=== PATIENT | female | born 1945 | race Caucasian/White ===

== ENCOUNTER 2017-08-23 09:08 | Inpatient (IN) | payer OTHER, MEDICAID ==
[2017-08-23 09:43] LABS: BASOPHILS # (AUTO) 0.2 X10^3/uL (0.0-0.1); BASOPHILS % (AUTO) 1.2 % (0.2-1.0); EOSINOPHILS % (AUTO) 0.2 % (0.9-2.9); HEMATOCRIT 39.9 % (36.0-47.0); HEMOGLOBIN 13.5 g/dL (12.0-16.0); LYMPHOCYTES % (AUTO) 6.5 % (21.0-51.0); MEAN CORPUSCULAR HEMOGLOBIN 31.7 pg (27.0-34.0); MEAN CORPUSCULAR HGB CONC 33.9 g/dL (33.0-35.0); MEAN CORPUSCULAR VOLUME 93.4 fL (80.0-100.0); MEAN PLATELET VOLUME 8.7 fL (7.4-11.0); MONOCYTES # (AUTO) 0.7 x10^3/uL (0.3-0.8); MONOCYTES % (AUTO) 4.9 % (0.0-13.0); NEUTROPHILS # (AUTO) 12.9 x10^3/uL (2.2-4.8); NEUTROPHILS % (AUTO) 87.2 % (42.0-75.0); PLATELET COUNT 387 X10^3/uL (150.0-450.0); RED BLOOD COUNT 4.27 X10^6/uL (3.5-5.4); RED CELL DISTRIBUTION WIDTH 14.7 % (11.6-16.5); WHITE BLOOD COUNT 14.8 X10^3/uL (3.6-10.0)
--- NOTE | 2017-08-23 09:54 | DR.GENAD ---
HPI - PCP Primary Care Physician: KIM - HPI Comment HPI Comment: Generalised weakness. Seen at the E.D in [facility] last night for same. She was noted with electrolyte abnormalities. She was d/c back to the [facility] after infusion of fluids. [facility] staff called here this morning and requested she be seen here - Complaint/Symptoms Chief Complaint:: GIOVANNI DRAKE RN, FROM [facility] CALLS AND STATES PT. WAS SENT TO [facility] LAST NIGHT WITH A POTASSIUM OF 6.0. PT. WAS GIVEN IVF'S AND SENT BACK TO LONG TERM WITH ORDERS TO ADMINISTER KAEXYLATE. NURSE STATES PT. HAS JERKING SENSTATIONS TO HER EXTREMITIES, GENERALIZED WEAKNESS, AMS , A-FIB WITH A RATE BETWEEN 85-120 BPM, HYPOXIA & SHALLOW RESPIRATIONS. O2 WAS 62% ON ROOM AIR. UPON ARRIVAL TO ER, PT. IS LETHARGIC AND C/O LOWER BACK PAIN. - Nurses notes reviewed Nurses Notes Review: Yes - Source History Provided: EMS, Jail - Mode of Arrival Mode of Arrival: EMS - Timing Onset of Chief Complaint: 08/22/17 - Modifying Factors Worsens:: nothing Improves:: nothing PMH - PMH Past Medical History: Yes Past Medical History: Anxiety, COPD, Coronary Artery Disease, Depression, Diabetes, GERD, Hypertension, [place] Past Medical History Comment: ANOREXIA Past Surgical History: Yes Surgical History: Bowel Resection, CABG/Valve Surgery Past Surgical History Comment: Colostomy - Family History History of Family Medical Conditions: Yes Family Medical History: Diabetes Mellitus, Cancer, Coronary Artery Disease - Social History Does patient currently use any type of tobacco product: No Have you used tobacco products in the last 12 months: No Type of Tobacco Use: None Does any household member use tobacco: No Alcohol Use: None Do you use any recreational Drugs:: No Lives Where: Jail - infectious screening In the last 2 months have you had wt loss of >10#?: NO Have you had fever, night sweats or hemotysis?: No Have you traveled outside the country in the last 6 months?: No Isolation: Standard ROS - Review of Systems Constitutional: Weakness Eyes: No Symptoms Reported ENTM: No Symptoms Reported Respiratoy: No Symptoms Reported Cardiovascular: No Symptoms Reported Gastrointestinal/Abdominal: No Symptoms Reported Genitourinary: No Symptoms Reported Neurological: No Symptoms Reported Musculoskeletal: No Symptoms Reported Integumentary: No Symptoms Reported Hematologic/Lymphatic: No Symptoms Reported Endocrine: No Symptoms Reported Psychiatric: No Symptoms Reported All Other Systems: Reviewed and Negative PE - Vital Signs Vitals: Temperature 98.7 F Pulse Rate [Apical] 84 Pulse Rate 86 Respiratory Rate 13 Blood Pressure [Right Arm] 137/51 Blood Pressure [Left Arm] 114/57 Blood Pressure 118/57 O2 Sat by Pulse Oximetry 100 - General Limitations: No Limitations General Appearance: Alert, Lethargic, Cachectic - Head Head Exam: Normal Inspection - Eyes Eye exam: Normal Appearance, PERRL, EOMI - ENT ENT Exam: Normal Exam, Mucous Membranes Dry External Ear Exam: Normal External Inspection TM/Canal Exam: Bilateral Normal Nose Exam: Normal Nose Exam Mouth Exam: Other (Dry tongue and lips) - Neck Neck Exam: Normal Inspection - Chest Chest Inspection: Normal Inspection - Respiratory Respiratory Exam: Normal Lung Sounds Bilat Respiratory Exam: Bilateral Clear to Auscultation - Cardiovascular Cardiovascular Exam: Regular Rate, Normal Rhythm - Abdominal Exam Abdominal Exam: Normal Inspection, Normal Bowel Sounds, Soft, Other (Right sided colostomy bag) - Extremities Extremities Exam: Normal Inspection - Back Back Exam: Normal Inspection - Neurologic Neurological Exam: Other (oriented to self) - Psychiatric Psychiatric Exam: Normal Affect, Normal Mood - Skin Skin Exam: Warm, Dry, Intact, Normal Color MDM - Additional Information Additional Information Obtained From: Old Records (from [facility] relating to last night's E.D. visit.) Course - Education/Counseling Education/Counseling: Patient, Family Educated On: Treatment, Diagnosis ROR - Labs Reviewed Result Diagrams: 08/23/17 09:25 08/23/17 10:43 - XRAY XRAY Interpreted by: Self (hyperinflated lung hargrove. no gross infiltrates. no pneumothorax. no cardiomegaly. ) - Diagnosis Discharge Problem: Weakness generalized, UTI (urinary tract infection) with pyuria, Hyperkalemia, Hyponatremia, Dehydration, Leukocytosis - Discharge Plan Disposition: ADMITTED INPATIENT Condition: Stable - Follow ups/Referrals - Instructions
[2017-08-23 10:09] LABS: ALANINE AMINOTRANSFERASE 26 Units/L (12-78); ALBUMIN 3.4 g/dL (3.4-5.0); ALKALINE PHOSPHATASE 133 Units/L (46-116); ASPARTATE AMINO TRANSFERASE 32 Units/L (15-37); BLOOD UREA NITROGEN 58 mg/dL (7-18); CHLORIDE 103 mmol/L (98-107); CREATININE 3.23 mg/dL (0.55-1.02); TOTAL PROTEIN 8.3 g/dL (6.4-8.2); eGFR BLACK RACES 18 (>60); eGFR NON BLACK RACES 15 (>60)
[2017-08-23 10:22] LABS: SODIUM 124 mmol/L (136-145)
[2017-08-23 10:57] LABS: BLOOD UREA NITROGEN 56 mg/dL (7-18); CALCIUM 10.1 mg/dL (8.5-10.1); CARBON DIOXIDE 15.6 mmol/L (21-32); CHLORIDE 102 mmol/L (98-107); CREATININE 3.33 mg/dL (0.55-1.02); eGFR BLACK RACES 18 (>60); eGFR NON BLACK RACES 15 (>60)
[2017-08-23 11:04] LABS: SODIUM 123 mmol/L (136-145)
[2017-08-23] MEDS ORDERED: KAYEXALATE PO ONE (11:31)
[2017-08-23] MEDS ORDERED: SODIUM BICARBONATE 8.4% INJ ADULT IVP ONE (11:33)
[2017-08-23 11:41] LABS: BILIRUBIN,URINE NEGATIVE (NEGATIVE); BLOOD/HEMOGLOBIN,URINE 2+ (NEGATIVE); GLUCOSE, URINE 1+ (NEGATIVE); KETONES,URINE NEGATIVE (NEGATIVE); LEUKOCYTE ESTERASE ,URINE 3+ (NEGATIVE); NITRITES,URINE NEGATIVE (NEGATIVE); PROTEIN,URINE 2+ (NEGATIVE); UROBILINOGEN,URINE NORMAL (NORMAL)
[2017-08-23] MEDS ORDERED: D50W ABBOJECT SYR IV ONE (11:41)
[2017-08-23 11:42] LABS: APPEARANCE,URINE CLOUDY (CLEAR); COLOR,URINE YELLOW (YELLOW)
[2017-08-23] MEDS ORDERED: SODIUM BICARBONATE 8.4% INJ ADULT ONE (11:44)
[2017-08-23] MEDS ORDERED: HumuLIN R ONE (11:53)
[2017-08-23 11:54] LABS: AMORPHOUS SEDIMENT,UR 1+ /HPF (NEGATIVE); BACTERIA,URINE 3+ /HPF (NEGATIVE); SQUAMOUS EPITHELIAL CELL,UR RARE /HPF (NEGATIVE)
[2017-08-23 11:55] LABS: YEAST,URINE MANY /HPF (NEGATIVE)
[2017-08-23] MEDS ORDERED: CALCIUM CHLORIDE INJ IV ONE (12:00)
[2017-08-23] MEDS ORDERED: HumuLIN R IV ONE (12:00)
[2017-08-23] MEDS ORDERED: NS 1000 ML 1,000 ML ONE (12:00)
[2017-08-23] MEDS ORDERED: D50W ABBOJECT SYR ONE (12:12)
--- NOTE | 2017-08-23 12:25 | RAD ---
HISTORY: 72-year-old male with altered mental status and low oxygen saturation Study: Frontal view of the chest. Comparison: Chest radiograph 05/29/2016 Findings: Surgical devices are stable. The trachea is midline. The cardiac silhouette is stably enlarged with low lung volumes and trace bi lateral effusions with chronic prominence of the interstitium.. The lungs are clear without focal co nsolidation, effusion or pneumothorax. Soft tissues are unremarkable. Osseous structures are unremar kable. IMPRESSION: 1. Cardiomegaly with trace bilateral effusions and prominent interstitium consistent with COPD. Reported By:
[2017-08-23] MEDS ORDERED: LEVAQUIN PREMIX IV 250 MG 250 MG/50 ML BAG IV SCH (13:00)
[2017-08-23] MEDS: NS 1000 ML 1,000 ML IV SCH ×3 (14:50→23:49)
[2017-08-23 16:21] VITALS: BMI 13.2
[2017-08-23] MEDS ORDERED: ULTRAM PO PRN (17:13)
[2017-08-23] MEDS ORDERED: HumuLIN R SC PRN (17:13)
[2017-08-23] MEDS ORDERED: XOPENEX 1.25 MG/3 ML NEBULE NEB SCH (17:15)
[2017-08-23] MEDS ORDERED: PULMICORT NEB TX 0.5 MG NEB SCH (17:15)
[2017-08-23] MEDS ORDERED: ROCEPHIN VIAL 1 GM 1 GM in NS 50 ML IV + SPIKE MINIBAG* 50 ML IV SCH (17:30)
[2017-08-23] MEDS ORDERED: XOPENEX 1.25 MG/3 ML NEBULE NEB ONE (17:33)
[2017-08-23] MEDS ORDERED: ROCEPHIN VIAL 1 GM ONE (17:58)
[2017-08-23] MEDS ORDERED: NS 50 ML IV 50 ML IV ONE (17:59)
[2017-08-23] MEDS: KAYEXALATE PO SCH ×2 (18:06→23:49)
[2017-08-23] MEDS: TOBRAMYCIN SULFATE IV SCH (18:30)
[2017-08-23] MEDS: NS IV SCH (18:30)
[2017-08-23] MEDS: XOPENEX 1.25 MG/3 ML NEBULE NEB SCH (20:18)
[2017-08-23] MEDS: PULMICORT NEB TX 0.5 MG NEB SCH (20:18)
[2017-08-23] MEDS: HumuLIN R SC PRN (21:05)
[2017-08-24] MEDS: TOBRAMYCIN SULFATE IV SCH ×4 (00:30→23:42)
[2017-08-24] MEDS: NS IV SCH ×4 (00:30→23:42)
[2017-08-24] MEDS: TYLENOL #3 TAB (W/CODEINE) PO PRN ×2 (04:43→12:17)
[2017-08-24] MEDS: KAYEXALATE PO SCH ×2 (05:06→12:05)
[2017-08-24] MEDS: NS 1000 ML 1,000 ML IV SCH ×2 (05:07→22:55)
[2017-08-24 05:31] LABS: LACTIC ACID 1.9 mmol/L (0.4-2.0)
[2017-08-24 05:40] LABS: ALBUMIN 2.4 g/dL (3.4-5.0); CALCIUM 9.3 mg/dL (8.5-10.1); COR CA(FOR HYPOALB) 10.6 mg/dL (8.5-10.1); CREATININE 2.13 mg/dL (0.55-1.02)
[2017-08-24 05:47] LABS: CARBON DIOXIDE 13.4 mmol/L (21-32)
[2017-08-24 05:51] LABS: BASOPHILS # (AUTO) 0.1 X10^3/uL (0.0-0.1); BASOPHILS % (AUTO) 0.7 % (0.2-1.0); EOSINOPHILS % (AUTO) 0.4 % (0.9-2.9); HEMATOCRIT 31.7 % (36.0-47.0); HEMOGLOBIN 10.6 g/dL (12.0-16.0); LYMPHOCYTES # (AUTO) 0.7 X10^3/uL (1.3-2.9); LYMPHOCYTES % (AUTO) 8.8 % (21.0-51.0); MEAN CORPUSCULAR HEMOGLOBIN 32.4 pg (27.0-34.0); MEAN CORPUSCULAR HGB CONC 33.5 g/dL (33.0-35.0); MEAN CORPUSCULAR VOLUME 96.6 fL (80.0-100.0); MEAN PLATELET VOLUME 8.9 fL (7.4-11.0); MONOCYTES # (AUTO) 0.5 x10^3/uL (0.3-0.8); MONOCYTES % (AUTO) 6.6 % (0.0-13.0); NEUTROPHILS # (AUTO) 6.5 x10^3/uL (2.2-4.8); NEUTROPHILS % (AUTO) 83.5 % (42.0-75.0); PLATELET COUNT 266 X10^3/uL (150.0-450.0); RED BLOOD COUNT 3.28 X10^6/uL (3.5-5.4); WHITE BLOOD COUNT 7.8 X10^3/uL (3.6-10.0)
[2017-08-24] MEDS: HumuLIN R SC PRN ×4 (06:09→20:51)
[2017-08-24] MEDS: XOPENEX 1.25 MG/3 ML NEBULE NEB SCH ×5 (08:19→21:27)
[2017-08-24] MEDS: PULMICORT NEB TX 0.5 MG NEB SCH ×2 (08:19→21:27)
[2017-08-24] MEDS ORDERED: ROCEPHIN VIAL 1 GM 1 GM in NS 100 ML IV + SPIKE MINIBAG* 100 ML IV SCH (09:00)
[2017-08-24] MEDS: ROCEPHIN VIAL 1 GM 1 GM in NS 50 ML IV 50 ML IV SCH (12:20)
[2017-08-24] MEDS ORDERED: ROCEPHIN VIAL 1 GM ONE (12:23)
[2017-08-24] MEDS ORDERED: NS 50 ML IV 50 ML IV ONE (12:23)
[2017-08-24 21:41] LABS: CREATININE 1.46 mg/dL (0.55-1.02)
[2017-08-24 22:23] LABS: TOBRAMYCIN,TROUGH 2.8 ug/mL (0-2)
[2017-08-24] MEDS ORDERED: PHARMACY CONSULT - TOBRAMYCIN XX SCH (23:00)
[2017-08-25] MEDS: TYLENOL #3 TAB (W/CODEINE) PO PRN (00:35)
[2017-08-25] MEDS: HumuLIN R SC PRN ×4 (06:01→20:55)
[2017-08-25 06:19] LABS: ALBUMIN 2.5 g/dL (3.4-5.0); CALCIUM 8.8 mg/dL (8.5-10.1); CREATININE 1.27 mg/dL (0.55-1.02)
[2017-08-25] MEDS: NS 1000 ML 1,000 ML IV SCH ×3 (06:25→15:57)
[2017-08-25 06:29] LABS: BASOPHILS # (AUTO) 0.1 X10^3/uL (0.0-0.1); BASOPHILS % (AUTO) 0.9 % (0.2-1.0); EOSINOPHILS # (AUTO) 0.1 x10^3/uL (0.0-0.2); EOSINOPHILS % (AUTO) 1.8 % (0.9-2.9); HEMATOCRIT 31.9 % (36.0-47.0); HEMOGLOBIN 10.7 g/dL (12.0-16.0); LYMPHOCYTES # (AUTO) 1.1 X10^3/uL (1.3-2.9); LYMPHOCYTES % (AUTO) 16.2 % (21.0-51.0); MEAN CORPUSCULAR HEMOGLOBIN 31.8 pg (27.0-34.0); MEAN CORPUSCULAR HGB CONC 33.4 g/dL (33.0-35.0); MEAN CORPUSCULAR VOLUME 95.2 fL (80.0-100.0); MEAN PLATELET VOLUME 8.7 fL (7.4-11.0); MONOCYTES # (AUTO) 0.6 x10^3/uL (0.3-0.8); MONOCYTES % (AUTO) 8.2 % (0.0-13.0); NEUTROPHILS # (AUTO) 5.1 x10^3/uL (2.2-4.8); NEUTROPHILS % (AUTO) 72.9 % (42.0-75.0); PLATELET COUNT 259 X10^3/uL (150.0-450.0); RED BLOOD COUNT 3.35 X10^6/uL (3.5-5.4); RED CELL DISTRIBUTION WIDTH 14.8 % (11.6-16.5)
[2017-08-25 07:08] LABS: CARBON DIOXIDE 13.3 mmol/L (21-32)
[2017-08-25] MEDS: ROCEPHIN VIAL 1 GM 1 GM in NS 50 ML IV 50 ML IV SCH (08:24)
[2017-08-25] MEDS: XOPENEX 1.25 MG/3 ML NEBULE NEB SCH ×4 (08:56→20:27)
[2017-08-25] MEDS: PULMICORT NEB TX 0.5 MG NEB SCH ×2 (08:56→20:27)
[2017-08-25] MEDS ORDERED: NS IV SCH (09:00)
[2017-08-25] MEDS ORDERED: TOBRAMYCIN SULFATE IV SCH (09:00)
[2017-08-25 10:48] LABS: ABG BASE EXCESS -12.3 mmol/L (-2.0-2.0); ABG HCO3 11.9 mmol/L (22-26)
[2017-08-25 10:49] LABS: ABG ALLEN TEST POS; FRACTIONATED INSPIRED OXYGEN 21
--- NOTE | 2017-08-25 10:52 | RAD ---
HISTORY: Shortness of breath Study: Chest PA and lateral Comparison: 08/23/2017 Findings: The patient is status post median sternotomy and CABG. The heart is within normal limits in size. The troy are normal. The lungs are mildly hyperinflated but free of acute alveolar infiltrates. There patten s been interval development of a left pleural effusion since the prior examination. IMPRESSION: Interval development of a small left pleural effusion since the prior examination Hyperinflation consistent with COPD No infiltrates Reported By:
[2017-08-25] MEDS ORDERED: SODIUM BICARBONATE TAB 650MG PO ONE (16:21)
[2017-08-25] MEDS ORDERED: NS 1000 ML 1,000 ML IV SCH (17:00)
[2017-08-25] MEDS ORDERED: SODIUM BICARBONATE TAB 650MG PO SCH (17:00)
[2017-08-25] MEDS ORDERED: TYLENOL #3 TAB (W/CODEINE) PO PRN (17:32)
[2017-08-25] MEDS ORDERED: PHARMACY CONSULT - TOBRAMYCIN XX SCH (17:32)
[2017-08-25] MEDS ORDERED: ULTRAM PO PRN (17:32)
[2017-08-25] MEDS ORDERED: SNACK - Diabetic Appropriate PO SCH (20:00)
[2017-08-25] MEDS: SODIUM BICARBONATE TAB 650MG PO SCH (21:01)
[2017-08-26] MEDS: SODIUM BICARBONATE TAB 650MG PO SCH ×2 (05:44→13:30)
[2017-08-26] MEDS: HumuLIN R SC PRN ×3 (05:48→16:38)
[2017-08-26 05:54] LABS: BASOPHILS % (AUTO) 0.5 % (0.2-1.0); EOSINOPHILS # (AUTO) 0.1 x10^3/uL (0.0-0.2); EOSINOPHILS % (AUTO) 1.4 % (0.9-2.9); HEMATOCRIT 29.2 % (36.0-47.0); HEMOGLOBIN 10.2 g/dL (12.0-16.0); LYMPHOCYTES # (AUTO) 0.9 X10^3/uL (1.3-2.9); LYMPHOCYTES % (AUTO) 14.7 % (21.0-51.0); MEAN CORPUSCULAR HEMOGLOBIN 32.6 pg (27.0-34.0); MEAN CORPUSCULAR VOLUME 93.3 fL (80.0-100.0); MEAN PLATELET VOLUME 8.1 fL (7.4-11.0); MONOCYTES # (AUTO) 0.5 x10^3/uL (0.3-0.8); MONOCYTES % (AUTO) 7.8 % (0.0-13.0); NEUTROPHILS # (AUTO) 4.5 x10^3/uL (2.2-4.8); NEUTROPHILS % (AUTO) 75.6 % (42.0-75.0); PLATELET COUNT 283 X10^3/uL (150.0-450.0); RED BLOOD COUNT 3.13 X10^6/uL (3.5-5.4); RED CELL DISTRIBUTION WIDTH 14.3 % (11.6-16.5)
[2017-08-26] MEDS ORDERED: NS 1000 ML 1,000 ML IV SCH (06:00)
[2017-08-26 06:17] LABS: ALANINE AMINOTRANSFERASE 24 Units/L (12-78); ALBUMIN 2.2 g/dL (3.4-5.0); ALKALINE PHOSPHATASE 104 Units/L (46-116); ASPARTATE AMINO TRANSFERASE 24 Units/L (15-37); BLOOD UREA NITROGEN 17 mg/dL (7-18); CALCIUM 8.5 mg/dL (8.5-10.1); CHLORIDE 107 mmol/L (98-107); COR CA(FOR HYPOALB) 9.9 mg/dL (8.5-10.1); COR NA(FOR HYPERGLY) 137 mmol/L (136-145); CREATININE 1.13 mg/dL (0.55-1.02); SODIUM 134 mmol/L (136-145); TOTAL PROTEIN 6.2 g/dL (6.4-8.2); eGFR BLACK RACES > 60 (>60); eGFR NON BLACK RACES 51 (>60)
[2017-08-26] MEDS ORDERED: ROCEPHIN VIAL 1 GM 1 GM in NS 50 ML IV 50 ML IV SCH (09:00)
[2017-08-26] MEDS: PULMICORT NEB TX 0.5 MG NEB SCH (09:01)
[2017-08-26] MEDS: XOPENEX 1.25 MG/3 ML NEBULE NEB SCH ×3 (09:01→16:35)
[2017-08-26] MEDS ORDERED: SODIUM BICARBONATE 8.4% INJ ADULT IVP ONE (09:40)
[2017-08-26] MEDS ORDERED: SODIUM BICARBONATE 8.4% INJ ADULT ONE (09:52)
[2017-08-26 11:56] LABS: CALCIUM 8.3 mg/dL (8.5-10.1); CARBON DIOXIDE 16.8 mmol/L (21-32); CREATININE 1.15 mg/dL (0.55-1.02)
[2017-08-26 16:20] VITALS: BP 151/66
== END 2017-08-26 16:58 | DRG 947 ==
LOC: ER 09:08 → ICU 10:43
PROVIDERS: ADMIT Internal Medicine; ATTEND Internal Medicine
DX: R41.82 Altered mental status, unspecified (principal); E87.5 Hyperkalemia; G93.41 Metabolic encephalopathy; N39.0 Urinary tract infection, site not specified; E86.0 Dehydration; E11.65 Type 2 diabetes mellitus with hyperglycemia; K21.9 Gastro-esophageal reflux disease without esophagitis; I25.10 Atherosclerotic heart disease of native coronary artery without angina pectoris; J44.9 Chronic obstructive pulmonary disease, unspecified; F41.8 Other specified anxiety disorders; R53.1 Weakness; E87.1 Hypo-osmolality and hyponatremia; R94.31 Abnormal electrocardiogram [ECG] [EKG]; I10 Essential (primary) hypertension; N17.8 Other acute kidney failure
CPT/HCPCS: 36415; 36600; 51702; 71010; 71020; 80048; 80053; 80200; 81001; 82565; 82803; 82947; 83605; 84132; 85025; 87040; 87086; 93005; 93010; 94640; 96365; 96374; 96375; 99221; 99284; 99285; A4222; J0696; J1815; J1956; J3260; J3490; J7626

== ENCOUNTER 2017-09-01 18:04 | Inpatient (IN) | payer OTHER, MEDICAID ==
[2017-09-01] MEDS ORDERED: NS 1000 ML 1,000 ML IV SCH (19:00)
[2017-09-01] MEDS ORDERED: NS 1000 ML 1,000 ML IV ONE (19:15)
[2017-09-01] MEDS ORDERED: FORTAZ or TAZICEF INJ 1 GM in NS 50 ML IV + SPIKE MINIBAG* 50 ML IV SCH (19:15)
[2017-09-01] MEDS ORDERED: HumuLIN R SUBCUT PRN (20:23)
[2017-09-01] MEDS ORDERED: TOBRAMYCIN SULFATE IV SCH (21:00)
[2017-09-01] MEDS ORDERED: NS IV SCH (21:00)
[2017-09-01 21:03] LABS: BASOPHILS % (AUTO) 0.3 % (0.2-1.0); EOSINOPHILS # (AUTO) 0.2 x10^3/uL (0.0-0.2); EOSINOPHILS % (AUTO) 1.7 % (0.9-2.9); HEMATOCRIT 38.7 % (36.0-47.0); HEMOGLOBIN 13.2 g/dL (12.0-16.0); LYMPHOCYTES # (AUTO) 1.6 X10^3/uL (1.3-2.9); LYMPHOCYTES % (AUTO) 14.8 % (21.0-51.0); MEAN CORPUSCULAR HEMOGLOBIN 31.4 pg (27.0-34.0); MEAN CORPUSCULAR HGB CONC 34.2 g/dL (33.0-35.0); MEAN PLATELET VOLUME 7.8 fL (7.4-11.0); MONOCYTES # (AUTO) 0.6 x10^3/uL (0.3-0.8); MONOCYTES % (AUTO) 6.1 % (0.0-13.0); NEUTROPHILS # (AUTO) 8.1 x10^3/uL (2.2-4.8); NEUTROPHILS % (AUTO) 77.1 % (42.0-75.0); PLATELET COUNT 425 X10^3/uL (150.0-450.0); RED BLOOD COUNT 4.21 X10^6/uL (3.5-5.4); RED CELL DISTRIBUTION WIDTH 14.4 % (11.6-16.5); WHITE BLOOD COUNT 10.5 X10^3/uL (3.6-10.0)
[2017-09-01 21:08] LABS: ALBUMIN 3.1 g/dL (3.4-5.0); CALCIUM 9.8 mg/dL (8.5-10.1); CARBON DIOXIDE 16.9 mmol/L (21-32); COR CA(FOR HYPOALB) 10.5 mg/dL (8.5-10.1); CREATININE 1.57 mg/dL (0.55-1.02); TOTAL PROTEIN 7.5 g/dL (6.4-8.2)
[2017-09-01 21:47] LABS: BILIRUBIN,URINE NEGATIVE (NEGATIVE); BLOOD/HEMOGLOBIN,URINE 1+ (NEGATIVE); GLUCOSE, URINE 2+ (NEGATIVE); KETONES,URINE NEGATIVE (NEGATIVE); LEUKOCYTE ESTERASE ,URINE 2+ (NEGATIVE); NITRITES,URINE NEGATIVE (NEGATIVE); PROTEIN,URINE 2+ (NEGATIVE); UROBILINOGEN,URINE NORMAL (NORMAL)
[2017-09-01 21:52] LABS: APPEARANCE,URINE SLIGHTLY HAZY (CLEAR); COLOR,URINE YELLOW (YELLOW)
[2017-09-01 21:53] LABS: AMORPHOUS SEDIMENT,UR TRACE /HPF (NEGATIVE); BACTERIA,URINE 1+ /HPF (NEGATIVE); SQUAMOUS EPITHELIAL CELL,UR RARE /HPF (NEGATIVE)
[2017-09-01] MEDS ORDERED: NS 50 ML IV 50 ML IV ONE (22:13)
[2017-09-01] MEDS ORDERED: FORTAZ or TAZICEF INJ ONE (22:13)
--- NOTE | 2017-09-02 05:53 | RAD ---
Examination: AP chest History: SOB Comparison reference: 08/25/2017 Findings: There is interval improvement in appearance of the left pleural effusion. There may be a sm all amount of fluid left; the current study is technically limited. Heart size remains normal with no obvious pulmonary consolidation or pneumothorax. Impression: Interval improvement in left pleural effusion. Conventional PA and lateral views would be helpful for more accurate evaluation. Reported By:
[2017-09-02 06:14] LABS: BASOPHILS % (AUTO) 0.5 % (0.2-1.0); EOSINOPHILS # (AUTO) 0.2 x10^3/uL (0.0-0.2); EOSINOPHILS % (AUTO) 1.9 % (0.9-2.9); HEMATOCRIT 32.5 % (36.0-47.0); HEMOGLOBIN 11.1 g/dL (12.0-16.0); LYMPHOCYTES # (AUTO) 1.7 X10^3/uL (1.3-2.9); LYMPHOCYTES % (AUTO) 15.2 % (21.0-51.0); MEAN CORPUSCULAR HEMOGLOBIN 31.5 pg (27.0-34.0); MEAN CORPUSCULAR HGB CONC 34.3 g/dL (33.0-35.0); MEAN CORPUSCULAR VOLUME 91.9 fL (80.0-100.0); MEAN PLATELET VOLUME 7.9 fL (7.4-11.0); MONOCYTES # (AUTO) 1.5 x10^3/uL (0.3-0.8); MONOCYTES % (AUTO) 13.8 % (0.0-13.0); NEUTROPHILS # (AUTO) 7.5 x10^3/uL (2.2-4.8); NEUTROPHILS % (AUTO) 68.6 % (42.0-75.0); PLATELET COUNT 357 X10^3/uL (150.0-450.0); RED BLOOD COUNT 3.54 X10^6/uL (3.5-5.4); RED CELL DISTRIBUTION WIDTH 14.5 % (11.6-16.5)
[2017-09-02 06:17] LABS: BLOOD UREA NITROGEN 37 mg/dL (7-18); CALCIUM 8.8 mg/dL (8.5-10.1); CHLORIDE 104 mmol/L (98-107); CREATININE 1.28 mg/dL (0.55-1.02); SODIUM 133 mmol/L (136-145); eGFR BLACK RACES 53 (>60); eGFR NON BLACK RACES 44 (>60)
[2017-09-02 07:04] LABS: PLATELET MORPHOLOGY COMMENT NORMAL (NORMAL)
[2017-09-02 08:58] VITALS: BMI 13.9
[2017-09-02] MEDS ORDERED: NS 1000 ML 1,000 ML IV SCH (09:00)
[2017-09-02] MEDS ORDERED: D5W IV SCH (09:00)
[2017-09-02] MEDS ORDERED: FORTAZ OR TAZICEF IV SCH (09:00)
[2017-09-02 10:46] LABS: CKMB % 7.2 % (<4); TROPONIN I 0.02 ng/mL (0-1.5)
[2017-09-02 10:49] LABS: CREATINE KINASE MB 4.3 ng/mL (0-4.0)
--- NOTE | 2017-09-02 11:08 | CT ---
HISTORY: Altered mental status, weakness Study: CT brain without contrast Comparison: None Technique: Multiple axial images of the brain were obtained from the skull base to the vertex without administra tion of IV contrast. Dose reduction techniques including Automated Exposure Control (AEC) and adjust ment of mA and kV were utilized. Findings: There is transcortical cerebral edema in the right temporal and parietal lobe suggesting evolving inf arction in the right MCA territory. There is mild generalized cerebral volume loss and white matter d isease likely due to microvascular ischemic changes. There is encephalomalacia in the right occipital lobe suggesting old infarction. No evidence of acute hemorrhage, midline shift, mass effect or abno rmal extra-axial fluid collection. The ventricular system is symmetric and nondilated. The soft tis sues and osseous structures are unremarkable. There is dense opacification of the right maxillary sin us and sinus wall thickening suggesting chronic sinusitis. IMPRESSION: 1. Transcortical cerebral edema in the right temporal and parietal lobe suggesting evolving infarctio n in the right MCA territory. This may be subacute, correlate clinically. No evidence of hemorrhage. 2. Microvascular ischemic changes and chronic appearing right occipital lobe infarct. 3. Right maxillary sinus disease. Reported By:
[2017-09-02] MEDS ORDERED: HEPARIN SODIUM IN D5W 25,000 UNITS/500 ML BAG IV PRN (11:26)
[2017-09-02] MEDS ORDERED: HEPARIN SODIUM IN D5W 25,000 UNITS/500 ML BAG IV ONE (11:27)
[2017-09-02] MEDS ORDERED: HEPARIN SODIUM INJ 5000 UNITS ONE (11:28)
[2017-09-02] MEDS ORDERED: HEPARIN SODIUM INJ 5000 UNITS IVP ONE ×2 (11:34→20:56)
[2017-09-02] MEDS: HEPARIN SODIUM IN D5W 25,000 UNITS/500 ML BAG IV PRN ×2 (11:35→13:44)
--- NOTE | 2017-09-02 12:56 | DR.H&P ---
H&P - History & Physical for Day of: H&P Date: 09/01/17 - Chief Complaint Chief Complaint: altered mental status per [facility]dc staff - Allergies Allergies/Adverse Reactions: Allergies Allergy/AdvReac Type Severity Reaction Status Date / Time No Known Drug Allergies Allergy Verified 08/23/17 09:56 - History of Present Illness History of Present Illness: 72 WF ADMIT FROM CUSTODIAL AFTER NURSING STAFF STATED PT HAD GENERALIZED WEAKNESS AND CONFUSION. PT WAS RECENTLY INPT WITH SIMILAR SYMPTOMS, ON PREVIOUS VISIT PT HAD SEVERE DEHYDRATION WITH HYPERKALEMIA AND UTI. PLAN TO ADMIT PT OBTAIN ADMISSION LABS, RESUME HOME MEDS. IV ATBX FOR UTI, CARDIAC MONITORING - Past Medical History Past Medical History: Anxiety, COPD, Coronary Artery Disease, Depression, Diabetes, GERD, Hypertension, [place] Additional Medical History: colon cancer - Past Surgical History Surgical History: Bowel Resection, CABG/Valve Surgery Additional Surgical History: colon cancer resection with colostomy formation - Family History Family Medical History: Diabetes Mellitus, Cancer, Coronary Artery Disease - Social History Does patient currently use any type of tobacco product: Yes Have you used tobacco products in the last 12 months: Yes Type of Tobacco Use: Cigarettes How many years tobacco product used: 19 Alcohol Use: None Drug Use: None - Medications Home Medications: Atenolol 25 mg PO DAILY 09/01/17 [History Confirmed 09/01/17] Budesonide Nebule 0.5 mg/2 ml [PULMICORT NEBULE 0.5 MG *] 1 ea INH BID 09/01/17 [History Confirmed 09/01/17] Levalbuterol HCl [XOPENEX NEBULE 1.25 MG *] 1 ea INH QID 09/01/17 [History Confirmed 09/01/17] Levofloxacin [LEVAQUIN TAB 250 MG *] 250 mg PO DAILY 09/01/17 [History Confirmed 09/01/17] - Review of Systems Constitutional: Weakness Eyes: No Symptoms Reported ENT: No Symptoms Reported Respiratory: No Symptoms Reported Cardiovascular: No Symptoms Reported Gastrointestinal: No Symptoms Reported Genitourinary: Incontinence Musculoskeletal: Shoulder Pain, Back Pain, Leg Pain Skin: No Symptoms Reported Neurological: Weakness (GENERALIZED). denies: Change in Speech - Physical Exam Vital Signs: Temperature 97.5 F Pulse Rate [Right Radial] 72 Respiratory Rate 18 Blood Pressure [Right Arm] 137/51 Blood Pressure [Left Arm] 89/44 Blood Pressure 151/66 O2 Sat by Pulse Oximetry 96 Oriented: Person Eyes: Normal Ear: Normal Throat: Normal Respiratory: RLL Diminished, LLL Diminished Cardiovascular: negative: Edema : Normal Auscultation: Bowel Sounds: Normal Palpation: Normal Tenderness: Normal Skin: Decreased Turgur (MILDLY) Musculoskeletal: Back:Lumbar Psychiatric: Anxiety Speech Pattern: Clear, Appropriate - Assessment/Plan (1) Generalized weakness Status: Acute Plan: ADMIT, ADMISSION LABS, UA, URINE CULTURE. IV ATBX, GENTLE IV HYDRATION, RESUME HOME MEDS (2) UTI (urinary tract infection) with pyuria Status: Acute (3) Diabetes mellitus, type 2 Status: Chronic (4) GERD (gastroesophageal reflux disease) Status: Chronic (5) History of CVA (cerebrovascular accident) Status: Chronic (6) Hypertension Status: Chronic
--- NOTE | 2017-09-02 14:45 | MRI ---
HISTORY: AMS, generalized weakness, right temporal parietal infarction on CT today Study: MRI of the brain done without contrast Comparison: CT scan of the brain performed earlier today. Technique: Multiple imaging planes and pulse sequences realizing evaluating the brain by magnetic res onance imaging. Diffusion weighted sequences and ADC maps were employed. No IV contrast agents were u tilized. Findings: On the diffusion-weighted imaging sequences in the right temporoparietal region there is increased si gnal compatible with acute or subacute infarction. Intensity of the signal indicates that this may be acute. Smaller , more punctate foci of increased signal present in the right periventricular region and in the right lateral thalamus, compatible with small areas of lacunar infarction. No other areas of signal abnormality is seen. Brainstem and cerebellum are unremarkable. The left cerebral hemispher e is within normal limits. IMPRESSION: Findings compatible with acute infarction involving the right temporoparietal region, within the dist ribution of the right middle cerebral artery. Smaller foci of periventricular and right lateral thala mus lacunar infarcts are also seen. Reported By:
--- NOTE | 2017-09-02 15:04 | VAS ---
HISTORY: Concern for carotid artery stenosis. COPD, diabetes, hypertension, CVA. CHF. Technique: Multiple pena scale and color flow Doppler images of the right and left carotid arterial s ystem were obtained. The vertebral arterial system was evaluated as well. Findings: Nonocclusive color flow Doppler is seen throughout the right and left carotid arterial system. No hem odynamically significant carotid arterial stenosis is seen based on velocity criteria. There is Moder ate atherosclerosis and plaque formation of the bilateral carotid bulbs and proximal ICAs with associ ated intimal thickening but without evidence for high-grade stenosis (>70%) or occlusion of the carot id arteries. The right and left vertebral artery demonstrate antegrade flow. IMPRESSION: Moderate atherosclerosis and hard plaque formation of the bilateral carotid bulbs and proximal ICAs w ith associated carotid intimal thickening but without evidence for high-grade stenosis or occlusion o f the carotid arteries, based on Doppler velocity criteria. Appropriate, antegrade, vertebral arterial flow. Peak right ICA velocity: 41 cm/sec. Peak left ICA velocity: 57 cm/sec. Reported By:
[2017-09-02 17:02] LABS: CKMB % 4.8 % (<4); TROPONIN I 0.03 ng/mL (0-1.5)
[2017-09-02 17:03] LABS: CREATINE KINASE MB 4.5 ng/mL (0-4.0)
[2017-09-02] MEDS: SNACK - Diabetic Appropriate PO SCH (20:00)
[2017-09-02] MEDS ORDERED: SNACK - Diabetic Appropriate PO SCH ×2 (20:00)
[2017-09-03 03:56] LABS: ALBUMIN 2.5 g/dL (3.4-5.0); CALCIUM 8.4 mg/dL (8.5-10.1); CARBON DIOXIDE 15.3 mmol/L (21-32); COR CA(FOR HYPOALB) 9.6 mg/dL (8.5-10.1); CREATININE 1.17 mg/dL (0.55-1.02); TOTAL PROTEIN 5.4 g/dL (6.4-8.2)
[2017-09-03 03:59] LABS: BASOPHILS # (AUTO) 0.1 X10^3/uL (0.0-0.1); BASOPHILS % (AUTO) 0.7 % (0.2-1.0); EOSINOPHILS # (AUTO) 0.1 x10^3/uL (0.0-0.2); EOSINOPHILS % (AUTO) 1.3 % (0.9-2.9); HEMATOCRIT 29.8 % (36.0-47.0); HEMOGLOBIN 10.3 g/dL (12.0-16.0); LYMPHOCYTES # (AUTO) 1.2 X10^3/uL (1.3-2.9); LYMPHOCYTES % (AUTO) 14.7 % (21.0-51.0); MEAN CORPUSCULAR HEMOGLOBIN 31.7 pg (27.0-34.0); MEAN CORPUSCULAR HGB CONC 34.6 g/dL (33.0-35.0); MEAN CORPUSCULAR VOLUME 91.8 fL (80.0-100.0); MEAN PLATELET VOLUME 7.8 fL (7.4-11.0); MONOCYTES # (AUTO) 0.7 x10^3/uL (0.3-0.8); MONOCYTES % (AUTO) 7.8 % (0.0-13.0); NEUTROPHILS # (AUTO) 6.5 x10^3/uL (2.2-4.8); NEUTROPHILS % (AUTO) 75.5 % (42.0-75.0); PLATELET COUNT 295 X10^3/uL (150.0-450.0); RED BLOOD COUNT 3.24 X10^6/uL (3.5-5.4); RED CELL DISTRIBUTION WIDTH 14.6 % (11.6-16.5); WHITE BLOOD COUNT 8.5 X10^3/uL (3.6-10.0)
[2017-09-03] MEDS ORDERED: K-LYTE EFFERVESCENT PO PRN (05:50)
[2017-09-03] MEDS: MAGNESIUM SULFATE 1 GM/100 mL PREMIX 1 GM/100 ML BAG IV PRN (06:03)
[2017-09-03] MEDS: NS 1000 ML 1,000 ML IV SCH ×3 (06:07→21:00)
[2017-09-03] MEDS: K-RIDER 10 MEQ/NS 100 ML 10 MEQ/100 ML BAG IV PRN ×2 (06:47→08:25)
[2017-09-03] MEDS: MAG-OX TAB PO PRN ×2 (06:54→08:10)
[2017-09-03] MEDS: D5W IV SCH (08:08)
[2017-09-03] MEDS: FORTAZ OR TAZICEF IV SCH (08:08)
[2017-09-03] MEDS: NS IV SCH (08:09)
[2017-09-03] MEDS: TOBRAMYCIN SULFATE IV SCH (08:09)
[2017-09-03] MEDS: HumuLIN R SUBCUT PRN (10:49)
[2017-09-03] MEDS: SNACK - Diabetic Appropriate PO SCH (20:40)
[2017-09-04] MEDS: HEPARIN SODIUM IN D5W 25,000 UNITS/500 ML BAG IV PRN (02:01)
[2017-09-04 04:31] LABS: BASOPHILS # (AUTO) 0.1 X10^3/uL (0.0-0.1); BASOPHILS % (AUTO) 0.7 % (0.2-1.0); EOSINOPHILS # (AUTO) 0.1 x10^3/uL (0.0-0.2); EOSINOPHILS % (AUTO) 1.2 % (0.9-2.9); HEMATOCRIT 31.6 % (36.0-47.0); HEMOGLOBIN 10.8 g/dL (12.0-16.0); LYMPHOCYTES # (AUTO) 1.4 X10^3/uL (1.3-2.9); LYMPHOCYTES % (AUTO) 18.2 % (21.0-51.0); MEAN CORPUSCULAR HEMOGLOBIN 31.5 pg (27.0-34.0); MEAN CORPUSCULAR HGB CONC 34.1 g/dL (33.0-35.0); MEAN CORPUSCULAR VOLUME 92.5 fL (80.0-100.0); MEAN PLATELET VOLUME 7.6 fL (7.4-11.0); MONOCYTES # (AUTO) 0.6 x10^3/uL (0.3-0.8); MONOCYTES % (AUTO) 8.2 % (0.0-13.0); NEUTROPHILS # (AUTO) 5.3 x10^3/uL (2.2-4.8); NEUTROPHILS % (AUTO) 71.7 % (42.0-75.0); PLATELET COUNT 264 X10^3/uL (150.0-450.0); RED BLOOD COUNT 3.41 X10^6/uL (3.5-5.4); RED CELL DISTRIBUTION WIDTH 14.4 % (11.6-16.5); WHITE BLOOD COUNT 7.4 X10^3/uL (3.6-10.0)
[2017-09-04 04:45] LABS: ALANINE AMINOTRANSFERASE 14 Units/L (12-78); ALBUMIN 2.4 g/dL (3.4-5.0); ALKALINE PHOSPHATASE 84 Units/L (46-116); ASPARTATE AMINO TRANSFERASE 23 Units/L (15-37); BLOOD UREA NITROGEN 17 mg/dL (7-18); CALCIUM 8.5 mg/dL (8.5-10.1); CARBON DIOXIDE 18.7 mmol/L (21-32); CHLORIDE 108 mmol/L (98-107); COR CA(FOR HYPOALB) 9.8 mg/dL (8.5-10.1); COR NA(FOR HYPERGLY) 140 mmol/L (136-145); CREATININE 1.12 mg/dL (0.55-1.02); MAGNESIUM 1.8 mg/dL (1.7-2.9); SODIUM 138 mmol/L (136-145); TOTAL PROTEIN 6.3 g/dL (6.4-8.2); eGFR BLACK RACES > 60 (>60); eGFR NON BLACK RACES 51 (>60)
[2017-09-04] MEDS: NS 1000 ML 1,000 ML IV SCH ×2 (05:38→17:12)
[2017-09-04] MEDS: HumuLIN R SUBCUT PRN ×4 (06:08→21:50)
[2017-09-04] MEDS: K-RIDER 10 MEQ/NS 100 ML 10 MEQ/100 ML BAG IV PRN ×2 (06:49→17:20)
[2017-09-04] MEDS: FORTAZ OR TAZICEF IV SCH (08:53)
[2017-09-04] MEDS: D5W IV SCH (08:53)
[2017-09-04] MEDS ORDERED: PHARMACY CONSULT - DOSE _____ XX SCH (14:00)
[2017-09-04] MEDS: PLAVIX PO SCH ×2 (17:12→20:40)
[2017-09-04] MEDS: ASPIRIN EC 81 MG PO SCH (17:12)
[2017-09-04] MEDS: NORVASC TAB 10 MG PO SCH ×2 (17:12→20:40)
[2017-09-04] MEDS: SNACK - Diabetic Appropriate PO SCH (20:08)
[2017-09-04] MEDS: TOBRAMYCIN SULFATE IV SCH (20:39)
[2017-09-04] MEDS: NS IV SCH (20:39)
[2017-09-05] MEDS: NS 1000 ML 1,000 ML IV SCH ×2 (00:10→07:55)
[2017-09-05 06:46] LABS: ALANINE AMINOTRANSFERASE 16 Units/L (12-78); ALBUMIN 2.8 g/dL (3.4-5.0); ALKALINE PHOSPHATASE 87 Units/L (46-116); ASPARTATE AMINO TRANSFERASE 25 Units/L (15-37); BLOOD UREA NITROGEN 11 mg/dL (7-18); CALCIUM 8.9 mg/dL (8.5-10.1); CARBON DIOXIDE 16.6 mmol/L (21-32); CHLORIDE 106 mmol/L (98-107); COR CA(FOR HYPOALB) 9.9 mg/dL (8.5-10.1); COR NA(FOR HYPERGLY) 141 mmol/L (136-145); CREATININE 0.93 mg/dL (0.55-1.02); SODIUM 139 mmol/L (136-145); eGFR BLACK RACES > 60 (>60); eGFR NON BLACK RACES > 60 (>60)
[2017-09-05 08:04] LABS: BASOPHILS % (AUTO) 0.6 % (0.2-1.0); EOSINOPHILS # (AUTO) 0.1 x10^3/uL (0.0-0.2); EOSINOPHILS % (AUTO) 1.8 % (0.9-2.9); HEMOGLOBIN 12.2 g/dL (12.0-16.0); LYMPHOCYTES # (AUTO) 1.6 X10^3/uL (1.3-2.9); LYMPHOCYTES % (AUTO) 20.6 % (21.0-51.0); MEAN CORPUSCULAR HEMOGLOBIN 31.2 pg (27.0-34.0); MEAN CORPUSCULAR HGB CONC 33.9 g/dL (33.0-35.0); MEAN CORPUSCULAR VOLUME 91.9 fL (80.0-100.0); MEAN PLATELET VOLUME 8.4 fL (7.4-11.0); MONOCYTES # (AUTO) 0.6 x10^3/uL (0.3-0.8); MONOCYTES % (AUTO) 7.2 % (0.0-13.0); NEUTROPHILS # (AUTO) 5.4 x10^3/uL (2.2-4.8); NEUTROPHILS % (AUTO) 69.8 % (42.0-75.0); PLATELET COUNT 275 X10^3/uL (150.0-450.0); RED BLOOD COUNT 3.91 X10^6/uL (3.5-5.4); RED CELL DISTRIBUTION WIDTH 14.4 % (11.6-16.5); WHITE BLOOD COUNT 7.7 X10^3/uL (3.6-10.0)
[2017-09-05] MEDS: NORVASC TAB 10 MG PO SCH ×2 (09:18→09:27)
[2017-09-05] MEDS: FORTAZ OR TAZICEF IV SCH (09:18)
[2017-09-05] MEDS: PLAVIX PO SCH ×2 (09:18→09:27)
[2017-09-05] MEDS: ASPIRIN EC 81 MG PO SCH ×2 (09:18→09:27)
[2017-09-05] MEDS: D5W IV SCH (09:18)
[2017-09-05] MEDS: TENORMIN PO SCH (09:27)
[2017-09-05] MEDS: HumuLIN R SUBCUT PRN ×3 (11:58→20:46)
[2017-09-05] MEDS: SNACK - Diabetic Appropriate PO SCH (20:37)
[2017-09-06 05:11] LABS: ALANINE AMINOTRANSFERASE 14 Units/L (12-78); ALBUMIN 2.8 g/dL (3.4-5.0); ALKALINE PHOSPHATASE 79 Units/L (46-116); ASPARTATE AMINO TRANSFERASE 17 Units/L (15-37); BLOOD UREA NITROGEN 11 mg/dL (7-18); CARBON DIOXIDE 18.8 mmol/L (21-32); CHLORIDE 108 mmol/L (98-107); COR NA(FOR HYPERGLY) 142 mmol/L (136-145); CREATININE 1.12 mg/dL (0.55-1.02); SODIUM 140 mmol/L (136-145); TOTAL PROTEIN 6.8 g/dL (6.4-8.2); eGFR BLACK RACES > 60 (>60); eGFR NON BLACK RACES 51 (>60)
[2017-09-06 05:20] LABS: BASOPHILS % (AUTO) 0.4 % (0.2-1.0); EOSINOPHILS # (AUTO) 0.2 x10^3/uL (0.0-0.2); EOSINOPHILS % (AUTO) 2.1 % (0.9-2.9); HEMATOCRIT 34.7 % (36.0-47.0); HEMOGLOBIN 11.8 g/dL (12.0-16.0); LYMPHOCYTES # (AUTO) 1.2 X10^3/uL (1.3-2.9); LYMPHOCYTES % (AUTO) 14.2 % (21.0-51.0); MEAN CORPUSCULAR HEMOGLOBIN 31.1 pg (27.0-34.0); MEAN CORPUSCULAR VOLUME 91.5 fL (80.0-100.0); MEAN PLATELET VOLUME 8.1 fL (7.4-11.0); MONOCYTES # (AUTO) 0.7 x10^3/uL (0.3-0.8); MONOCYTES % (AUTO) 9.2 % (0.0-13.0); NEUTROPHILS % (AUTO) 74.1 % (42.0-75.0); PLATELET COUNT 271 X10^3/uL (150.0-450.0); RED BLOOD COUNT 3.79 X10^6/uL (3.5-5.4); RED CELL DISTRIBUTION WIDTH 14.4 % (11.6-16.5); WHITE BLOOD COUNT 8.1 X10^3/uL (3.6-10.0)
[2017-09-06] MEDS: HumuLIN R SUBCUT PRN ×3 (06:09→21:24)
[2017-09-06] MEDS: K-RIDER 10 MEQ/NS 100 ML 10 MEQ/100 ML BAG IV PRN ×4 (06:46→13:40)
[2017-09-06] MEDS: MAGNESIUM SULFATE 1 GM/100 mL PREMIX 1 GM/100 ML BAG IV PRN ×2 (07:25→08:56)
[2017-09-06] MEDS: D5W IV SCH (08:56)
[2017-09-06] MEDS: FORTAZ OR TAZICEF IV SCH (08:56)
[2017-09-06] MEDS: NORVASC TAB 10 MG PO SCH (09:00)
[2017-09-06] MEDS: PLAVIX PO SCH (09:00)
[2017-09-06] MEDS: ASPIRIN EC 81 MG PO SCH (09:01)
[2017-09-06] MEDS: TENORMIN PO SCH (10:07)
[2017-09-06 10:13] LABS: CREATININE 1.02 mg/dL (0.55-1.02)
[2017-09-06 10:25] LABS: TOBRAMYCIN,TROUGH 0.4 ug/mL (0-2)
[2017-09-06] MEDS: NS IV SCH (10:29)
[2017-09-06] MEDS: TOBRAMYCIN SULFATE IV SCH (10:29)
[2017-09-06] MEDS: NS 1000 ML 1,000 ML IV SCH ×2 (11:26→21:24)
--- NOTE | 2017-09-06 19:18 | PCM.PROG ---
Progress Note - Progress Note for Day of Date: 09/06/17 - Subjective Subjective: IS A PATIENT OF . SHE WAS ADMITTED FOR GENERALIZED WEAKNESS. DURING HOSPITALIZATION, SHE WAS FOUND TO HAVE HAD AN ACUTE CVA. TODAY, SHE REMAINS IN THE INTENSIVE CARE UNIT FOR CLOSE MONITORING. ON MORNING ROUNDS, PATIENT CONTINUES WITH CONFUSION AT TIMES AND LEFT SIDED WEAKNESS. LUNGS CONTINUE WITH WHEEZING AND RHONCHI THROUGHOUT. ABDOMEN IS FLAT, SOFT, AND NON-TENDER. NORMAL BOWEL SOUNDS ARE NOTED IN ALL QUADRANTS. HER VITAL SIGNS THIS MORNING ARE 97.8-80-20-100%-149/66. ABNORMAL LAB VALUES INCLUDE THE FOLLOWING: HGB 11.8, HCT 34.7, POTASSIUM 3.2, CHLORIDE 108, CARBON DIOXIDE 18.8 , GFR 51, GLUCOSE 168, ALBUMIN 2.8, A/G RATIO 0.7. STAFF REPORTS THAT PATIENT HAS BEEN MORE COOPERATIVE WITH MORNING MEDICATIONS. TODAY, WE WILL CONTINUE WITH CURRENT PLAN OF CARE. SHE WILL RECEIVE POTASSIUM REPLACEMENT. WE PLAN TO ORDER AM LABS. AND RIANA COLUNGA WILL RESUME CARE OF PATIENT IN THE MORNING. - Past Medical Family Social History Past Med/Fam/Surg Hx: No changes since H&P Allergies: Allergies No Known Drug Allergies Allergy (Verified 08/23/17 09:56) - Review of Systems ROS: No change since H&P - Vital Signs and I&O's Vital Signs: Temperature 98.6 F Pulse Rate [Apical] 80 Pulse Rate [Right Radial] 83 Respiratory Rate 14 Blood Pressure [Right Arm] 137/51 Blood Pressure [Left Arm] 144/67 Blood Pressure 151/66 O2 Sat by Pulse Oximetry 100 Intake and Output: Intake & Output 09/04/17 09/05/17 09/06/17 09/07/17 11:59 11:59 11:59 11:59 Intake Total 2090 1997 1784 1598 Output Total 1100 1400 1300 725 Balance 991 598 484 873 - Physical Exam Oriented: Person Eyes: Normal Ear: Normal Nose: Normal Throat: Normal Respiratory: Right, Left, Generalized, Wheezes, Rhonchi Cardiovascular: Normal. negative: Edema : Normal Auscultation: Bowel Sounds: Normal Palpation: Normal Tenderness: Normal Skin: Decreased Turgur (MILDLY) Musculoskeletal: Normal Psychiatric: Anxiety, Other (CONFUSION ) Mood Description: Calm Affect: Normal Speech Pattern: Inappropriate - Laboratory and Diagnostics Result Diagrams: 09/06/17 04:10 09/06/17 18:15 Labs: 09/01/17 20:38 Blood Blood Culture - Final 09/01/17 21:04 Urine,Catheterized Urine Culture - Final 09/02/17 05:35 Blood Blood Culture - Preliminary Laboratory WBC 8.1 X10^3/uL (3.6-10.0) 09/06/17 04:10 RBC 3.79 X10^6/uL (3.5-5.4) 09/06/17 04:10 Hgb 11.8 g/dL (12.0-16.0) L 09/06/17 04:10 Hct 34.7 % (36.0-47.0) L 09/06/17 04:10 MCV 91.5 fL (80.0-100.0) 09/06/17 04:10 MCH 31.1 pg (27.0-34.0) 09/06/17 04:10 MCHC 34.0 g/dL (33.0-35.0) 09/06/17 04:10 RDW 14.4 % (11.6-16.5) 09/06/17 04:10 Plt Count 271 X10^3/uL (150.0-450.0) 09/06/17 04:10 Plt Count Comment Adequate (ADEQUATE) 09/02/17 05:35 MPV 8.1 fL (7.4-11.0) 09/06/17 04:10 Neut % 74.1 % (42.0-75.0) 09/06/17 04:10 Lymph % 14.2 % (21.0-51.0) L 09/06/17 04:10 [place] % 9.2 % (0.0-13.0) 09/06/17 04:10 Eos % 2.1 % (0.9-2.9) 09/06/17 04:10 Baso % 0.4 % (0.2-1.0) 09/06/17 04:10 Neut # 6.0 x10^3/uL (2.2-4.8) H 09/06/17 04:10 Lymph # 1.2 X10^3/uL (1.3-2.9) L 09/06/17 04:10 [place] # 0.7 x10^3/uL (0.3-0.8) 09/06/17 04:10 Eos # 0.2 x10^3/uL (0.0-0.2) 09/06/17 04:10 Baso # 0.0 X10^3/uL (0.0-0.1) 09/06/17 04:10 Absolute Nucleated RBC 0.2 /100WBC 09/06/17 04:10 Total Counted 100 09/02/17 05:35 Neutrophils % (Manual) 71 % (39-76) 09/02/17 05:35 Lymphocytes % (Manual) 23 % (13-43) 09/02/17 05:35 Monocytes % (Manual) 6 % (4-9) 09/02/17 05:35 Plt Morphology Comment Normal (NORMAL) 09/02/17 05:35 RBC Morphology Normal (NORMAL) 09/02/17 05:35 INR Target Range - 09/02/17 11:58 INR 1.16 (0.8-1.3) 09/02/17 11:58 PTT 33.9 SECONDS (22.9-36.5) 09/05/17 12:45 PTT Comment - 09/05/17 12:45 Sodium 140 mmol/L (136-145) 09/06/17 04:10 Corrected Sodium 142 mmol/L (136-145) 09/06/17 04:10 Potassium 3.9 mmol/L (3.5-5.1) 09/06/17 18:15 Chloride 108 mmol/L (98-107) H 09/06/17 04:10 Carbon Dioxide 18.8 mmol/L (21-32) L 09/06/17 04:10 BUN 11 mg/dL (7-18) 09/06/17 04:10 Creatinine 1.02 mg/dL (0.55-1.02) 09/06/17 09:40 Est GFR (MDRD) Af Amer > 60 (>60) 09/06/17 04:10 Est GFR (MDRD) Non-Af 51 (>60) L 09/06/17 04:10 Glucose 168 mg/dL (65-99) H 09/06/17 04:10 POC Glucose (mg/dL) 141 mg/dL (65-99) H 09/06/17 16:25 Calcium 9.0 mg/dL (8.5-10.1) 09/06/17 04:10 Corrected Calcium 10.0 mg/dL (8.5-10.1) 09/06/17 04:10 Magnesium 1.5 mg/dL (1.7-2.9) L 09/06/17 04:10 Total Bilirubin 0.30 mg/dL (0.2-1.0) 09/06/17 04:10 AST 17 Units/L (15-37) 09/06/17 04:10 ALT 14 Units/L (12-78) 09/06/17 04:10 Alkaline Phosphatase 79 Units/L (46-116) 09/06/17 04:10 Ammonia 11 umol/L (11-32) 09/02/17 10:00 Creatine Kinase 93 Units/L (26-192) 09/02/17 16:13 CK-MB (CK-2) 4.5 ng/mL (0-4.0) H* 09/02/17 16:13 CK/CKMB % Calc 4.8 % (<4) 09/02/17 16:13 Troponin I 0.03 ng/mL (0-1.5) 09/02/17 16:13 Total Protein 6.8 g/dL (6.4-8.2) 09/06/17 04:10 Albumin 2.8 g/dL (3.4-5.0) L 09/06/17 04:10 Globulin 4.0 g/dL (2.5-4.5) 09/06/17 04:10 Albumin/Globulin Ratio 0.7 Ratio (1.1-2.1) L 09/06/17 04:10 Specimen Type Catherized urine 09/01/17 21:04 Urine Color Yellow (YELLOW) 09/01/17 21:04 Urine Appearance Slightly hazy (CLEAR) 09/01/17 21:04 Urine pH 5.0 (5.0 - 8.0) 09/01/17 21:04 Ur Specific [place] 1.015 (1.000-1.030) 09/01/17 21:04 Urine Protein 2+ (NEGATIVE) 09/01/17 21:04 Urine Glucose (UA) 2+ (NEGATIVE) 09/01/17 21:04 Urine Ketones Negative (NEGATIVE) 09/01/17 21:04 Urine Occult Blood 1+ (NEGATIVE) 09/01/17 21:04 Urine Nitrite Negative (NEGATIVE) 09/01/17 21:04 Urine Bilirubin Negative (NEGATIVE) 09/01/17 21:04 Urine Urobilinogen Normal (NORMAL) 09/01/17 21:04 Ur Leukocyte Esterase 2+ (NEGATIVE) 09/01/17 21:04 Urine RBC 3-5 /HPF (NEGATIVE) 09/01/17 21:04 Urine WBC 10-15 /HPF (NEGATIVE) 09/01/17 21:04 Ur Squamous Epith Cells Rare /HPF (NEGATIVE) 09/01/17 21:04 Amorphous Sediment Trace /HPF (NEGATIVE) 09/01/17 21:04 Urine Bacteria 1+ /HPF (NEGATIVE) 09/01/17 21:04 Ur Culture Indicated? Yes/culture set up 09/01/17 21:04 Tobramycin Trough 0.4 ug/mL (0-2) 09/06/17 09:40 - Plan (1) Acute CVA (cerebrovascular accident) Status: Acute Plan: CONTINUE ASPIRIN, CONTINUE PLAVIX, CONTINUE SUPPLEMENTAL OXYGEN, TELEMETRY , CONTINUE TO MONITOR (2) Generalized weakness Status: Acute Plan: CONTINUE NORMAL SALINE, CONTINUE PHYSICAL THERAPY, CONTINUE TO MONITOR
--- NOTE | 2017-09-06 19:18 | PCM.PROG ---
Progress Note - Progress Note for Day of Date: 09/05/17 - Subjective Subjective: IS A PATIENT OF . SHE WAS ADMITTED FOR GENERALIZED WEAKNESS. DURING HOSPITALIZATION, SHE WAS FOUND TO HAVE HAD AN ACUTE CVA. TODAY, SHE REMAINS IN THE INTENSIVE CARE UNIT FOR CLOSE MONITORING. ON MORNING ROUNDS, PATIENT HAS INAPPROPRIATE RESPONSES TO QUESTIONS. SHE IS NOT ORIENTED TO SITUATION. IT SHOULD BE NOTED THAT PATIENT ALSO HAS A HISTORY OF CHRONIC DEMENTIA. ON EXAMINATION, PATIENT HAS USE OF ALL EXTREMITIES, HOWEVER, LEFT SIDE IS WEAKER THAN THE RIGHT. LUNGS ARE NOTED WITH WHEEZING AND RHONCHI THROUGHOUT. ABDOMEN IS FLAT, SOFT, AND NON-TENDER. NORMAL BOWEL SOUNDS ARE NOTED IN ALL QUADRANTS. HER VITAL SIGNS THIS MORNING ARE 97.4-83-20-100%-170/ 77. ABNORMAL LAB VALUES INCLUDE THE FOLLOWING: PTT 33.9, CARBON DIOXIDE 16.6, GLUCOSE 170, ALBUMIN 2.8, A/G RATIO 0.7. STAFF REPORTS THAT PATIENT IS REFUSING TO TAKE MORNING MEDICATIONS WELL REFUSES LIQUIDS. A HEPARIN DRIP IS NOTED TO BE INFUSING AT THIS TIME ALTHOUGH IT APPEARS TO HAVE BEEN DISCONTINUED BY HER PRIMARY CARE PHYSICIAN YESTERDAY. WE INSTRUCTED STAFF TO DISCONTINUE AT THIS TIME. TODAY, WE WILL CONTINUE WITH CURRENT PLAN OF CARE. WE WILL CONTINUE TO HAVE PHYSICAL THERAPY WORK WITH PATIENT. WE PLAN TO FOLLOW UP WITH AM LAB[facility] AND CONTINUE TO MONITOR PATIENT. - Past Medical Family Social History Past Med/Fam/Surg Hx: No changes since H&P Allergies: Allergies No Known Drug Allergies Allergy (Verified 08/23/17 09:56) - Vital Signs and I&O's Vital Signs: Temperature 98.6 F Pulse Rate [Apical] 80 Pulse Rate [Right Radial] 83 Respiratory Rate 14 Blood Pressure [Right Arm] 137/51 Blood Pressure [Left Arm] 144/67 Blood Pressure 151/66 O2 Sat by Pulse Oximetry 100 Intake and Output: Intake & Output 09/04/17 09/05/17 09/06/17 09/07/17 11:59 11:59 11:59 11:59 Intake Total 2090 1998 1784 1598 Output Total 1100 1400 1300 725 Balance 991 598 484 873 - Physical Exam Oriented: Person Eyes: Normal Ear: Normal Nose: Normal Throat: Normal Respiratory: Right, Left, Generalized, Wheezes, Rhonchi Cardiovascular: Normal. negative: Edema : Normal Auscultation: Bowel Sounds: Normal Palpation: Normal Tenderness: Normal Skin: Decreased Turgur (MILDLY) Musculoskeletal: Normal Psychiatric: Anxiety, Other (CONFUSION ) Mood Description: Calm Affect: Normal Speech Pattern: Inappropriate - Laboratory and Diagnostics Result Diagrams: 09/06/17 04:10 09/06/17 18:15 Labs: 09/01/17 20:38 Blood Blood Culture - Final 09/01/17 21:04 Urine,Catheterized Urine Culture - Final 09/02/17 05:35 Blood Blood Culture - Preliminary Laboratory WBC 8.1 X10^3/uL (3.6-10.0) 09/06/17 04:10 RBC 3.79 X10^6/uL (3.5-5.4) 09/06/17 04:10 Hgb 11.8 g/dL (12.0-16.0) L 09/06/17 04:10 Hct 34.7 % (36.0-47.0) L 09/06/17 04:10 MCV 91.5 fL (80.0-100.0) 09/06/17 04:10 MCH 31.1 pg (27.0-34.0) 09/06/17 04:10 MCHC 34.0 g/dL (33.0-35.0) 09/06/17 04:10 RDW 14.4 % (11.6-16.5) 09/06/17 04:10 Plt Count 271 X10^3/uL (150.0-450.0) 09/06/17 04:10 Plt Count Comment Adequate (ADEQUATE) 09/02/17 05:35 MPV 8.1 fL (7.4-11.0) 09/06/17 04:10 Neut % 74.1 % (42.0-75.0) 09/06/17 04:10 Lymph % 14.2 % (21.0-51.0) L 09/06/17 04:10 [place] % 9.2 % (0.0-13.0) 09/06/17 04:10 Eos % 2.1 % (0.9-2.9) 09/06/17 04:10 Baso % 0.4 % (0.2-1.0) 09/06/17 04:10 Neut # 6.0 x10^3/uL (2.2-4.8) H 09/06/17 04:10 Lymph # 1.2 X10^3/uL (1.3-2.9) L 09/06/17 04:10 [place] # 0.7 x10^3/uL (0.3-0.8) 09/06/17 04:10 Eos # 0.2 x10^3/uL (0.0-0.2) 09/06/17 04:10 Baso # 0.0 X10^3/uL (0.0-0.1) 09/06/17 04:10 Absolute Nucleated RBC 0.2 /100WBC 09/06/17 04:10 Total Counted 100 09/02/17 05:35 Neutrophils % (Manual) 71 % (39-76) 09/02/17 05:35 Lymphocytes % (Manual) 23 % (13-43) 09/02/17 05:35 Monocytes % (Manual) 6 % (4-9) 09/02/17 05:35 Plt Morphology Comment Normal (NORMAL) 09/02/17 05:35 RBC Morphology Normal (NORMAL) 09/02/17 05:35 INR Target Range - 09/02/17 11:58 INR 1.16 (0.8-1.3) 09/02/17 11:58 PTT 33.9 SECONDS (22.9-36.5) 09/05/17 12:45 PTT Comment - 09/05/17 12:45 Sodium 140 mmol/L (136-145) 09/06/17 04:10 Corrected Sodium 142 mmol/L (136-145) 09/06/17 04:10 Potassium 3.9 mmol/L (3.5-5.1) 09/06/17 18:15 Chloride 108 mmol/L (98-107) H 09/06/17 04:10 Carbon Dioxide 18.8 mmol/L (21-32) L 09/06/17 04:10 BUN 11 mg/dL (7-18) 09/06/17 04:10 Creatinine 1.02 mg/dL (0.55-1.02) 09/06/17 09:40 Est GFR (MDRD) Af Amer > 60 (>60) 09/06/17 04:10 Est GFR (MDRD) Non-Af 51 (>60) L 09/06/17 04:10 Glucose 168 mg/dL (65-99) H 09/06/17 04:10 POC Glucose (mg/dL) 141 mg/dL (65-99) H 09/06/17 16:25 Calcium 9.0 mg/dL (8.5-10.1) 09/06/17 04:10 Corrected Calcium 10.0 mg/dL (8.5-10.1) 09/06/17 04:10 Magnesium 1.5 mg/dL (1.7-2.9) L 09/06/17 04:10 Total Bilirubin 0.30 mg/dL (0.2-1.0) 09/06/17 04:10 AST 17 Units/L (15-37) 09/06/17 04:10 ALT 14 Units/L (12-78) 09/06/17 04:10 Alkaline Phosphatase 79 Units/L (46-116) 09/06/17 04:10 Ammonia 11 umol/L (11-32) 09/02/17 10:00 Creatine Kinase 93 Units/L (26-192) 09/02/17 16:13 CK-MB (CK-2) 4.5 ng/mL (0-4.0) H* 09/02/17 16:13 CK/CKMB % Calc 4.8 % (<4) 09/02/17 16:13 Troponin I 0.03 ng/mL (0-1.5) 09/02/17 16:13 Total Protein 6.8 g/dL (6.4-8.2) 09/06/17 04:10 Albumin 2.8 g/dL (3.4-5.0) L 09/06/17 04:10 Globulin 4.0 g/dL (2.5-4.5) 09/06/17 04:10 Albumin/Globulin Ratio 0.7 Ratio (1.1-2.1) L 09/06/17 04:10 Specimen Type Catherized urine 09/01/17 21:04 Urine Color Yellow (YELLOW) 09/01/17 21:04 Urine Appearance Slightly hazy (CLEAR) 09/01/17 21:04 Urine pH 5.0 (5.0 - 8.0) 09/01/17 21:04 Ur Specific [place] 1.015 (1.000-1.030) 09/01/17 21:04 Urine Protein 2+ (NEGATIVE) 09/01/17 21:04 Urine Glucose (UA) 2+ (NEGATIVE) 09/01/17 21:04 Urine Ketones Negative (NEGATIVE) 09/01/17 21:04 Urine Occult Blood 1+ (NEGATIVE) 09/01/17 21:04 Urine Nitrite Negative (NEGATIVE) 09/01/17 21:04 Urine Bilirubin Negative (NEGATIVE) 09/01/17 21:04 Urine Urobilinogen Normal (NORMAL) 09/01/17 21:04 Ur Leukocyte Esterase 2+ (NEGATIVE) 09/01/17 21:04 Urine RBC 3-5 /HPF (NEGATIVE) 09/01/17 21:04 Urine WBC 10-15 /HPF (NEGATIVE) 09/01/17 21:04 Ur Squamous Epith Cells Rare /HPF (NEGATIVE) 09/01/17 21:04 Amorphous Sediment Trace /HPF (NEGATIVE) 09/01/17 21:04 Urine Bacteria 1+ /HPF (NEGATIVE) 09/01/17 21:04 Ur Culture Indicated? Yes/culture set up 09/01/17 21:04 Tobramycin Trough 0.4 ug/mL (0-2) 09/06/17 09:40 - Plan (1) Acute CVA (cerebrovascular accident) Status: Acute Plan: CONTINUE ASPIRIN, CONTINUE PLAVIX, CONTINUE SUPPLEMENTAL OXYGEN, TELEMETRY , CONTINUE TO MONITOR (2) Generalized weakness Status: Acute Plan: CONTINUE NORMAL SALINE, CONTINUE PHYSICAL THERAPY, CONTINUE TO MONITOR
[2017-09-06] MEDS: SNACK - Diabetic Appropriate PO SCH (21:24)
[2017-09-07 05:33] LABS: BASOPHILS % (AUTO) 0.6 % (0.2-1.0); EOSINOPHILS # (AUTO) 0.1 x10^3/uL (0.0-0.2); EOSINOPHILS % (AUTO) 1.6 % (0.9-2.9); HEMOGLOBIN 11.9 g/dL (12.0-16.0); LYMPHOCYTES # (AUTO) 1.6 X10^3/uL (1.3-2.9); LYMPHOCYTES % (AUTO) 18.8 % (21.0-51.0); MEAN CORPUSCULAR HEMOGLOBIN 31.1 pg (27.0-34.0); MEAN CORPUSCULAR VOLUME 91.6 fL (80.0-100.0); MONOCYTES # (AUTO) 0.7 x10^3/uL (0.3-0.8); MONOCYTES % (AUTO) 8.5 % (0.0-13.0); NEUTROPHILS % (AUTO) 70.5 % (42.0-75.0); PLATELET COUNT 269 X10^3/uL (150.0-450.0); RED BLOOD COUNT 3.82 X10^6/uL (3.5-5.4); RED CELL DISTRIBUTION WIDTH 14.4 % (11.6-16.5); WHITE BLOOD COUNT 8.5 X10^3/uL (3.6-10.0)
[2017-09-07 05:38] LABS: ALANINE AMINOTRANSFERASE 12 Units/L (12-78); ALBUMIN 2.6 g/dL (3.4-5.0); ALKALINE PHOSPHATASE 72 Units/L (46-116); ASPARTATE AMINO TRANSFERASE 24 Units/L (15-37); BLOOD UREA NITROGEN 16 mg/dL (7-18); CALCIUM 8.6 mg/dL (8.5-10.1); CHLORIDE 110 mmol/L (98-107); COR CA(FOR HYPOALB) 9.7 mg/dL (8.5-10.1); COR NA(FOR HYPERGLY) 139 mmol/L (136-145); CREATININE 0.89 mg/dL (0.55-1.02); MAGNESIUM 1.8 mg/dL (1.7-2.9); SODIUM 137 mmol/L (136-145); TOTAL PROTEIN 6.6 g/dL (6.4-8.2); eGFR BLACK RACES > 60 (>60); eGFR NON BLACK RACES > 60 (>60)
[2017-09-07 05:43] LABS: CARBON DIOXIDE 11.9 mmol/L (21-32)
[2017-09-07] MEDS: NORVASC TAB 10 MG PO SCH (11:07)
[2017-09-07] MEDS: ASPIRIN EC 81 MG PO SCH (11:07)
[2017-09-07] MEDS: PLAVIX PO SCH (11:07)
[2017-09-07] MEDS: TENORMIN PO SCH (11:07)
[2017-09-07] MEDS: D5W IV SCH (11:08)
[2017-09-07] MEDS: FORTAZ OR TAZICEF IV SCH (11:08)
[2017-09-07 14:52] VITALS: BP 130/63
== END 2017-09-07 16:30 | disposition home or self-care (01) | DRG 947 ==
LOC: MED/SURG 18:04 → ICU 09-02 11:25 → OBSVTOIN 09-02 11:33
PROVIDERS: ADMIT Internal Medicine; ATTEND Internal Medicine
DX: R41.82 Altered mental status, unspecified (principal); R53.1 Weakness; I63.8 Other cerebral infarction; J44.9 Chronic obstructive pulmonary disease, unspecified; K21.9 Gastro-esophageal reflux disease without esophagitis; E11.65 Type 2 diabetes mellitus with hyperglycemia; F41.8 Other specified anxiety disorders; N39.0 Urinary tract infection, site not specified; I10 Essential (primary) hypertension; R94.30 Abnormal result of cardiovascular function study, unspecified; I69.892 Facial weakness following other cerebrovascular disease; L89.301 Pressure ulcer of unspecified buttock, stage 1; L89.892 Pressure ulcer of other site, stage 2; R26.89 Other abnormalities of gait and mobility
CPT/HCPCS: 36415; 70450; 70551; 71010; 80048; 80053; 80200; 81001; 82140; 82550; 82553; 82565; 83735; 84132; 84484; 85025; 85610; 85730; 87040; 87086; 93005; 93010; 93880; A4222; G0378; J0713; J1644; J1815; J3260; J3480

== ENCOUNTER 2017-09-17 09:54 | Inpatient (IN) | payer OTHER, MEDICAID ==
--- NOTE | 2017-09-17 10:21 | DR.GENAD ---
HPI - PCP Primary Care Physician: richard - Complaint/Symptoms Chief Complaint Doctors Comments: hub cutter apprentice reports that patient was wheezing and chocked on water this morning. Patient was discharged from hospital on the s/p CVA in late July. Her [id number] reports that patient was wheezing this morning and chocked when she was given water. Chief Complaint:: family stated she has been wheezing and she cant swollow.[facility] - Source History Provided: Family Member - Mode of Arrival Mode of Arrival: Wheelchair - Timing Onset of Chief Complaint: 09/16/17 PMH - PMH Past Medical History: Yes Past Medical History: Anxiety, COPD, Coronary Artery Disease, Depression, Diabetes, GERD, Hypertension, [place] Past Surgical History: Yes Surgical History: Bowel Resection, CABG/Valve Surgery - Family History History of Family Medical Conditions: Yes Family Medical History: Diabetes Mellitus, Cancer, Coronary Artery Disease - Social History Does patient currently use any type of tobacco product: No Have you used tobacco products in the last 12 months: No Does any household member use tobacco: Yes Alcohol Use: None Do you use any recreational Drugs:: No Lives With: Family Lives Where: Home - infectious screening In the last 2 months have you had wt loss of >10#?: NO Have you had fever, night sweats or hemotysis?: No Have you traveled outside the country in the last 6 months?: No Isolation: Standard ROS - Review of Systems Eyes: No Symptoms Reported ENTM: No Symptoms Reported Respiratoy: No Symptoms Reported Cardiovascular: No Symptoms Reported Gastrointestinal/Abdominal: No Symptoms Reported Genitourinary: No Symptoms Reported Neurological: No Symptoms Reported Musculoskeletal: No Symptoms Reported Integumentary: Dryness Endocrine: No Symptoms Reported Psychiatric: No Symptoms Reported All Other Systems: Reviewed and Negative PE - Vital Signs Vitals: Temperature 98.9 F Pulse Rate 87 Respiratory Rate 18 Blood Pressure [Right Arm] 137/51 Blood Pressure [Left Arm] 130/63 Blood Pressure 128/60 O2 Sat by Pulse Oximetry 98 - General General Appearance: Lethargic - Head Head Exam: Normal Inspection - Eyes Eye exam: Normal Appearance, PERRL, EOMI - ENT ENT Exam: Mucous Membranes Dry External Ear Exam: Normal External Inspection TM/Canal Exam: Bilateral Normal Nose Exam: Normal Nose Exam Mouth Exam: Trismus. negative: Drooling, Lip Swelling, Tongue Elevation, Tongue Swelling - Chest Chest Inspection: Normal Inspection, Symmetric Chest Wall Rise - Respiratory Respiratory Exam: Normal Lung Sounds Bilat Respiratory Exam: Bilateral Clear to Auscultation - Cardiovascular Cardiovascular Exam: Regular Rate - Abdominal Exam Abdominal Exam: Normal Inspection Abdominal Tenderness: negative: RUQ, RLQ, LUQ, LLQ, Epigastrium, Suprapubic, Diffuse, Mild, Moderate, Severe, Other - Extremities Extremities Exam: Normal Inspection, Full ROM - Back Back Exam: Normal Inspection - Neurologic Neurological Exam: Alert - Psychiatric Psychiatric Exam: Normal Affect - Skin Skin Exam: Warm, Dry, Intact Course - Treatment Treatment: see orders - Consultation Called: 10:30 (Dr Clements agreed to admit for further treatment and evalaution) ROR - Labs Reviewed Result Diagrams: 09/17/17 10:50 09/17/17 10:50 Laboratory: WBC 23.0 X10^3/uL (3.6-10.0) H 09/17/17 10:50 RBC 4.67 X10^6/uL (3.5-5.4) 09/17/17 10:50 Hgb 14.4 g/dL (12.0-16.0) 09/17/17 10:50 Hct 43.4 % (36.0-47.0) 09/17/17 10:50 MCV 92.9 fL (80.0-100.0) 09/17/17 10:50 MCH 30.8 pg (27.0-34.0) 09/17/17 10:50 MCHC 33.2 g/dL (33.0-35.0) 09/17/17 10:50 RDW 15.6 % (11.6-16.5) 09/17/17 10:50 Plt Count 188 X10^3/uL (150.0-450.0) 09/17/17 10:50 Plt Count Comment Adequate (ADEQUATE) 09/17/17 10:50 MPV 9.1 fL (7.4-11.0) 09/17/17 10:50 Neut % 84.2 % (42.0-75.0) H 09/17/17 10:50 Lymph % 8.3 % (21.0-51.0) L 09/17/17 10:50 [place] % 5.9 % (0.0-13.0) 09/17/17 10:50 Eos % 0.0 % (0.9-2.9) L 09/17/17 10:50 Baso % 1.6 % (0.2-1.0) H 09/17/17 10:50 Neut # 19.3 x10^3/uL (2.2-4.8) H 09/17/17 10:50 Lymph # 1.9 X10^3/uL (1.3-2.9) 09/17/17 10:50 [place] # 1.4 x10^3/uL (0.3-0.8) H 09/17/17 10:50 Eos # 0.0 x10^3/uL (0.0-0.2) 09/17/17 10:50 Baso # 0.4 X10^3/uL (0.0-0.1) H 09/17/17 10:50 Absolute Nucleated RBC 0.0 /100WBC 09/17/17 10:50 Total Counted 100 09/17/17 10:50 Neutrophils % (Manual) 85 % (39-76) H 09/17/17 10:50 Band Neutrophils % 2 % (0-10) 09/17/17 10:50 Lymphocytes % (Manual) 10 % (13-43) L 09/17/17 10:50 Monocytes % (Manual) 3 % (4-9) L 09/17/17 10:50 Plt Morphology Comment Normal (NORMAL) 09/17/17 10:50 RBC Morphology Normal (NORMAL) 09/17/17 10:50 Sodium 133 mmol/L (136-145) L 09/17/17 10:50 Corrected Sodium 139 mmol/L (136-145) 09/17/17 10:50 Potassium 5.3 mmol/L (3.5-5.1) H 09/17/17 10:50 Chloride 101 mmol/L (98-107) 09/17/17 10:50 Carbon Dioxide 13.7 mmol/L (21-32) L* 09/17/17 10:50 BUN 23 mg/dL (7-18) H 09/17/17 10:50 Creatinine 1.41 mg/dL (0.55-1.02) H 09/17/17 10:50 Est GFR (MDRD) Af Amer 47 (>60) L 09/17/17 10:50 Est GFR (MDRD) Non-Af 39 (>60) L 09/17/17 10:50 Glucose 340 mg/dL (65-99) H 09/17/17 10:50 Calcium 9.4 mg/dL (8.5-10.1) 09/17/17 10:50 Corrected Calcium TNP 09/17/17 10:50 Total Bilirubin 0.60 mg/dL (0.2-1.0) 09/17/17 10:50 AST 20 Units/L (15-37) 09/17/17 10:50 ALT 15 Units/L (12-78) 09/17/17 10:50 Alkaline Phosphatase 99 Units/L (46-116) 09/17/17 10:50 Total Protein 8.0 g/dL (6.4-8.2) 09/17/17 10:50 Albumin 3.4 g/dL (3.4-5.0) 09/17/17 10:50 Globulin 4.6 g/dL (2.5-4.5) H 09/17/17 10:50 Albumin/Globulin Ratio 0.7 Ratio (1.1-2.1) L 09/17/17 10:50 Specimen Type Clean catch urine 09/17/17 11:05 Urine Color Yellow (YELLOW) 09/17/17 11:05 Urine Appearance Cloudy (CLEAR) 09/17/17 11:05 Urine pH 5.0 (5.0 - 8.0) 09/17/17 11:05 Ur Specific [place] 1.020 (1.000-1.030) 09/17/17 11:05 Urine Protein 2+ (NEGATIVE) 09/17/17 11:05 Urine Glucose (UA) Negative (NEGATIVE) 09/17/17 11:05 Urine Ketones Negative (NEGATIVE) 09/17/17 11:05 Urine Occult Blood 3+ (NEGATIVE) 09/17/17 11:05 Urine Nitrite Negative (NEGATIVE) 09/17/17 11:05 Urine Bilirubin Negative (NEGATIVE) 09/17/17 11:05 Urine Urobilinogen Normal (NORMAL) 09/17/17 11:05 Ur Leukocyte Esterase 3+ (NEGATIVE) 09/17/17 11:05 Urine RBC 10-15 /HPF (NEGATIVE) 09/17/17 11:05 Urine WBC Tntc /HPF (NEGATIVE) 09/17/17 11:05 Ur Squamous Epith Cells Rare /HPF (NEGATIVE) 09/17/17 11:05 Urine Bacteria Trace /HPF (NEGATIVE) 09/17/17 11:05 Ur Culture Indicated? Yes/culture set up 09/17/17 11:05 - XRAY XRAY Interpreted by: Radiologist (Chest: continued normal heart size. The right lung remains clear. There is interval development of retrocardiac density with blunting of the costophrenic angle. The left upper lung is clear No pneumothorax Impressin: Interval development of pleural parachymal opacity at the left base consistent with airspace disease in the left lower lobe, and pleural fluid. Findings may represent pneumonia and /or atelectasis.) - Diagnosis Discharge Problem: Metabolic acidosis, Hyponatremia, Hyperkalemia LLL pneumonia Qualifiers: Pneumonia type: due to unspecified organism Qualified Code(s): J18.1 - Lobar pneumonia, unspecified organism UTI (urinary tract infection) Qualifiers: Urinary tract infection type: acute cystitis Hematuria presence: with hematuria Qualified Code(s): N30.01 - Acute cystitis with hematuria Diabetes mellitus, type 2 Qualifiers: Diabetes mellitus complication status: with hyperglycemia Diabetes mellitus mcfp insulin use: unspecified mcfp insulin use status Qualified Code(s ): E11.65 - Type 2 diabetes mellitus with hyperglycemia - Discharge Plan Condition: Stable - Follow ups/Referrals Follow ups/Referrals: PETE CLEMENTS [Primary Care Provider] - 3 days - Instructions
[2017-09-17] MEDS: NS 1000 ML 1,000 ML IV SCH ×2 (10:42→20:24)
[2017-09-17 11:01] LABS: BASOPHILS # (AUTO) 0.4 X10^3/uL (0.0-0.1); BASOPHILS % (AUTO) 1.6 % (0.2-1.0); HEMATOCRIT 43.4 % (36.0-47.0); HEMOGLOBIN 14.4 g/dL (12.0-16.0); LYMPHOCYTES # (AUTO) 1.9 X10^3/uL (1.3-2.9); LYMPHOCYTES % (AUTO) 8.3 % (21.0-51.0); MEAN CORPUSCULAR HEMOGLOBIN 30.8 pg (27.0-34.0); MEAN CORPUSCULAR HGB CONC 33.2 g/dL (33.0-35.0); MEAN CORPUSCULAR VOLUME 92.9 fL (80.0-100.0); MEAN PLATELET VOLUME 9.1 fL (7.4-11.0); MONOCYTES # (AUTO) 1.4 x10^3/uL (0.3-0.8); MONOCYTES % (AUTO) 5.9 % (0.0-13.0); NEUTROPHILS # (AUTO) 19.3 x10^3/uL (2.2-4.8); NEUTROPHILS % (AUTO) 84.2 % (42.0-75.0); PLATELET COUNT 188 X10^3/uL (150.0-450.0); RED BLOOD COUNT 4.67 X10^6/uL (3.5-5.4); RED CELL DISTRIBUTION WIDTH 15.6 % (11.6-16.5)
[2017-09-17 11:04] LABS: BLOOD UREA NITROGEN 23 mg/dL (7-18); CALCIUM 9.4 mg/dL (8.5-10.1); CHLORIDE 101 mmol/L (98-107); COR NA(FOR HYPERGLY) 139 mmol/L (136-145); CREATININE 1.41 mg/dL (0.55-1.02); SODIUM 133 mmol/L (136-145); eGFR BLACK RACES 47 (>60); eGFR NON BLACK RACES 39 (>60)
[2017-09-17 11:09] LABS: ALANINE AMINOTRANSFERASE 15 Units/L (12-78); ALBUMIN 3.4 g/dL (3.4-5.0); ALKALINE PHOSPHATASE 99 Units/L (46-116); ASPARTATE AMINO TRANSFERASE 20 Units/L (15-37); CARBON DIOXIDE 13.7 mmol/L (21-32)
--- NOTE | 2017-09-17 11:09 | RAD ---
Examination: Portable AP chest History: Wheezing Comparison reference: 09/11/2017 Findings: Continued normal heart size. The right lung remains clear. There is interval development of retrocardiac density with blunting of the costophrenic angle. The left upper lung is clear. No pneum othorax is seen. Impression: Interval development of pleural-parenchymal opacity at the left base consistent with airs pace disease in the left lower lobe, and pleural fluid. Findings may represent pneumonia and/or atele ctasis. Reported By:
[2017-09-17 11:21] LABS: BAND NEUTROPHILS % 2 % (0-10); PLATELET MORPHOLOGY COMMENT NORMAL (NORMAL)
[2017-09-17 11:39] LABS: BILIRUBIN,URINE NEGATIVE (NEGATIVE); BLOOD/HEMOGLOBIN,URINE 3+ (NEGATIVE); GLUCOSE, URINE NEGATIVE (NEGATIVE); KETONES,URINE NEGATIVE (NEGATIVE); LEUKOCYTE ESTERASE ,URINE 3+ (NEGATIVE); NITRITES,URINE NEGATIVE (NEGATIVE); PROTEIN,URINE 2+ (NEGATIVE); UROBILINOGEN,URINE NORMAL (NORMAL)
[2017-09-17 11:54] LABS: APPEARANCE,URINE CLOUDY (CLEAR); BACTERIA,URINE TRACE /HPF (NEGATIVE); COLOR,URINE YELLOW (YELLOW); SQUAMOUS EPITHELIAL CELL,UR RARE /HPF (NEGATIVE)
[2017-09-17] MEDS ORDERED: DUONEB 0.5 MG/3 MG ONE (11:58)
[2017-09-17] MEDS ORDERED: PROVENTIL NEB TX 0.083% 2.5MG/ 3ML ONE (12:00)
[2017-09-17] MEDS ORDERED: PROVENTIL NEB TX 0.083% 2.5MG/ 3ML NEB SCH (12:00)
[2017-09-17] MEDS ORDERED: PROVENTIL NEB TX 0.083% 2.5MG/ 3ML NEB ONE (12:08)
[2017-09-17] MEDS: DUONEB 0.5 MG/3 MG NEB SCH ×3 (12:24→20:54)
[2017-09-17] MEDS ORDERED: TUSSIONEX PENNKINETIC SUSP PO PRN (12:27)
[2017-09-17] MEDS ORDERED: NS IV SCH ×2 (13:00)
[2017-09-17] MEDS ORDERED: POTASSIUM CHLORIDE IV SCH ×2 (13:00)
[2017-09-17] MEDS ORDERED: LEVAQUIN PREMIX IV 750 MG 750 MG/150 ML BAG IV SCH (13:00)
[2017-09-17] MEDS: ROBITUSSIN DM PO SCH ×3 (14:44→21:35)
[2017-09-17] MEDS: HumuLIN R SUBCUT PRN ×2 (17:04→21:35)
[2017-09-17] MEDS: SNACK - Diabetic Appropriate PO SCH (20:34)
[2017-09-18] MEDS: DUONEB 0.5 MG/3 MG NEB SCH ×6 (01:39→20:20)
[2017-09-18] MEDS: NS 1000 ML 1,000 ML IV SCH ×3 (04:08→13:05)
[2017-09-18 05:46] LABS: BASOPHILS % (AUTO) 0.2 % (0.2-1.0); EOSINOPHILS % (AUTO) 0.1 % (0.9-2.9); HEMOGLOBIN 12.3 g/dL (12.0-16.0); LYMPHOCYTES # (AUTO) 0.8 X10^3/uL (1.3-2.9); LYMPHOCYTES % (AUTO) 6.1 % (21.0-51.0); MEAN CORPUSCULAR HEMOGLOBIN 30.8 pg (27.0-34.0); MEAN CORPUSCULAR HGB CONC 33.3 g/dL (33.0-35.0); MEAN CORPUSCULAR VOLUME 92.5 fL (80.0-100.0); MEAN PLATELET VOLUME 9.3 fL (7.4-11.0); MONOCYTES # (AUTO) 0.6 x10^3/uL (0.3-0.8); NEUTROPHILS # (AUTO) 11.3 x10^3/uL (2.2-4.8); NEUTROPHILS % (AUTO) 88.6 % (42.0-75.0); PLATELET COUNT 160 X10^3/uL (150.0-450.0); RED CELL DISTRIBUTION WIDTH 15.4 % (11.6-16.5); WHITE BLOOD COUNT 12.7 X10^3/uL (3.6-10.0)
[2017-09-18 05:47] LABS: ALANINE AMINOTRANSFERASE 9 Units/L (12-78); ALBUMIN 2.7 g/dL (3.4-5.0); ALKALINE PHOSPHATASE 82 Units/L (46-116); ASPARTATE AMINO TRANSFERASE 17 Units/L (15-37); BLOOD UREA NITROGEN 16 mg/dL (7-18); CALCIUM 8.9 mg/dL (8.5-10.1); CHLORIDE 106 mmol/L (98-107); COR CA(FOR HYPOALB) 9.9 mg/dL (8.5-10.1); COR NA(FOR HYPERGLY) 140 mmol/L (136-145); CREATININE 1.09 mg/dL (0.55-1.02); SODIUM 136 mmol/L (136-145); TOTAL PROTEIN 6.6 g/dL (6.4-8.2); eGFR BLACK RACES > 60 (>60); eGFR NON BLACK RACES 53 (>60)
[2017-09-18 05:51] LABS: CARBON DIOXIDE 12.9 mmol/L (21-32)
[2017-09-18] MEDS: HumuLIN R SUBCUT PRN ×4 (06:06→20:49)
--- NOTE | 2017-09-18 06:07 | RAD ---
Examination: Portable AP chest History: Wheezing Comparison reference: 09/17/2017 Findings: There is again noted extensive retrocardiac opacity consistent with pneumonia or atelectasi s in the left lower lobe. Apparent shift of the heart and mediastinum to the left may be related to p atient rotation. The right lung is clear, heart size unchanged. Impression: Persistent airspace disease left lower lung. A definite pleural effusion is not identifie d. Reported By:
[2017-09-18] MEDS: ROBITUSSIN DM PO SCH ×4 (08:08→20:49)
[2017-09-18 14:42] VITALS: BMI 15.9
[2017-09-18] MEDS ORDERED: BUTT CREAM (COMPOUND) TOP PRN (16:39)
[2017-09-18] MEDS ORDERED: BUTT CREAM (COMPOUND) ONE (16:41)
[2017-09-18] MEDS: SNACK - Diabetic Appropriate PO SCH (20:48)
[2017-09-19] MEDS: DUONEB 0.5 MG/3 MG NEB SCH ×5 (00:55→17:04)
[2017-09-19] MEDS: HumuLIN R SUBCUT PRN ×3 (06:05→17:10)
[2017-09-19 07:25] LABS: BASOPHILS % (AUTO) 0.3 % (0.2-1.0); EOSINOPHILS # (AUTO) 0.1 x10^3/uL (0.0-0.2); HEMATOCRIT 29.4 % (36.0-47.0); HEMOGLOBIN 9.9 g/dL (12.0-16.0); LYMPHOCYTES # (AUTO) 0.8 X10^3/uL (1.3-2.9); LYMPHOCYTES % (AUTO) 7.6 % (21.0-51.0); MEAN CORPUSCULAR HGB CONC 33.7 g/dL (33.0-35.0); MEAN PLATELET VOLUME 9.3 fL (7.4-11.0); MONOCYTES # (AUTO) 0.5 x10^3/uL (0.3-0.8); MONOCYTES % (AUTO) 5.2 % (0.0-13.0); NEUTROPHILS % (AUTO) 85.9 % (42.0-75.0); PLATELET COUNT 144 X10^3/uL (150.0-450.0); RED CELL DISTRIBUTION WIDTH 15.2 % (11.6-16.5); WHITE BLOOD COUNT 10.5 X10^3/uL (3.6-10.0)
[2017-09-19] MEDS: NS 1000 ML 1,000 ML IV SCH ×2 (07:50→17:23)
[2017-09-19] MEDS ORDERED: LEVAQUIN PREMIX IV 750 MG 750 MG/150 ML BAG IV SCH (09:00)
[2017-09-19] MEDS: ROBITUSSIN DM PO SCH ×4 (09:02→21:05)
[2017-09-19 09:48] LABS: ALANINE AMINOTRANSFERASE 12 Units/L (12-78); ALBUMIN 2.5 g/dL (3.4-5.0); ALKALINE PHOSPHATASE 76 Units/L (46-116); ASPARTATE AMINO TRANSFERASE 23 Units/L (15-37); BLOOD UREA NITROGEN 13 mg/dL (7-18); CHLORIDE 105 mmol/L (98-107); COR NA(FOR HYPERGLY) 140 mmol/L (136-145); SODIUM 138 mmol/L (136-145); TOTAL PROTEIN 5.4 g/dL (6.4-8.2); eGFR BLACK RACES > 60 (>60); eGFR NON BLACK RACES > 60 (>60)
[2017-09-19 10:30] LABS: CARBON DIOXIDE 17.1 mmol/L (21-32)
[2017-09-19 10:31] LABS: COR CA(FOR HYPOALB) 9.2 mg/dL (8.5-10.1); CREATININE 0.93 mg/dL (0.55-1.02)
[2017-09-19] MEDS ORDERED: MAG-OX TAB PO PRN (11:04)
[2017-09-19] MEDS ORDERED: POTASSIUM CHLORIDE LIQ 20 MEQ UDC PO PRN (11:04)
[2017-09-19] MEDS ORDERED: K-LYTE EFFERVESCENT PO PRN (11:04)
[2017-09-19] MEDS ORDERED: MAGNESIUM SULFATE 1 GM/100 mL PREMIX 1 GM/100 ML BAG IV PRN (11:04)
[2017-09-19] MEDS ORDERED: K-RIDER 10 MEQ/NS 100 ML 10 MEQ/100 ML BAG IV PRN (11:04)
[2017-09-19] MEDS ORDERED: POTASSIUM CHL 40 MEQ/NS 0.45% 500 ML IV NR (12:00)
[2017-09-19] MEDS ORDERED: POTASSIUM CHL 60 MEQ/NS 0.45% 500 ML IV NR (12:00)
[2017-09-19] MEDS ORDERED: CELEXA PO SCH (16:00)
[2017-09-19] MEDS ORDERED: PLAVIX PO SCH (16:00)
[2017-09-19] MEDS ORDERED: BUSPAR PO SCH (21:00)
[2017-09-19] MEDS: SNACK - Diabetic Appropriate PO SCH (21:07)
[2017-09-19 21:12] VITALS: BP 155/71
[2017-09-20] MEDS ORDERED: GLUCOTROL XL PO SCH (09:00)
== END 2017-09-19 21:15 | disposition home or self-care (01) | DRG 194 ==
LOC: ER 10:00 → MED/SURG 12:22
PROVIDERS: ADMIT Internal Medicine; ATTEND Internal Medicine
DX: J18.1 Lobar pneumonia, unspecified organism (principal); N30.01 Acute cystitis with hematuria; E87.1 Hypo-osmolality and hyponatremia; E87.2 Acidosis; R41.82 Altered mental status, unspecified; E87.5 Hyperkalemia; R53.1 Weakness; E86.0 Dehydration; Z87.440 Personal history of urinary (tract) infections; R13.11 Dysphagia, oral phase; R26.89 Other abnormalities of gait and mobility; F41.8 Other specified anxiety disorders; J44.9 Chronic obstructive pulmonary disease, unspecified; I25.10 Atherosclerotic heart disease of native coronary artery without angina pectoris; K21.9 Gastro-esophageal reflux disease without esophagitis; E11.65 Type 2 diabetes mellitus with hyperglycemia; I10 Essential (primary) hypertension; B96.89 Other specified bacterial agents as the cause of diseases classified elsewhere; Z79.4 Long term (current) use of insulin; K94.03 Colostomy malfunction
CPT/HCPCS: 36415; 51702; 71010; 80053; 81001; 82947; 83605; 83735; 85025; 87040; 87070; 87077; 87086; 87186; 87205; 94640; 94760; 96365; 96374; 99221; 99231; 99238; 99282; 99284; A4222; J1815; J1956; J3480; J7613; J7620

== ENCOUNTER 2017-11-27 10:53 | Inpatient (IN) | payer OTHER, MEDICAID ==
--- NOTE | 2017-11-27 11:49 | DR.AMS ---
HPI - Time Seen Time seen: 11:40 - PCP Primary Care Physician: RIANA JOHN - HPI Comment HPI Comment: HISTORY BELOW UNDER CHIEF COMPLAINT. - Complaint Cheif Complaint Doctors Comments: CONFUSE. Chief Complaint:: SISTER IN LAW STATES PT. WOKE UP THIS MORNING AND WAS CONFUSED AND WAS "STARING INTO OUTER SPACE." PT. IS SLUGGISH IN TRIAGE AND IS CONFUSED. FAMILY MEMBER STATES PT. WAS C/O OF HER HEAD AND NECK HURTING THIS MORNING. PT. NORMALLY HAS AN UNSTEADY GAIT BECAUSE OF HER HX OF CVA. - Reviewed Nurses Notes Reviewed: Yes - Source History Provided: Family Member - Mode of Arrival Mode of Arrival: Wheelchair - Timing Onset of Chief Complaint: 11/27/17 Came On: Gradually Symptoms: Worsening - Duration Duration: Constant Duration: Days - Quality Quality: Decreased Alertness, Confusion - Severity Severity: Moderate - Context Recent: None History Of: CVA, Dementia, Diabetes - Associated Signs and Symptoms Associated Signs and Symptoms: Left Sided Weakness, Generalized Weakness, Chest Pain, Change in Behavior, Confusion PMH - PMH Past Medical History: Yes Past Medical History: Anxiety, COPD, Coronary Artery Disease, CVA, Depression, Diabetes, GERD, Hypertension, CT Past Surgical History: Yes Surgical History: Bowel Resection, CABG/Valve Surgery - Family History History of Family Medical Conditions: Yes Family Medical History: Diabetes Mellitus, Cancer, Coronary Artery Disease - Social History Does patient currently use any type of tobacco product: No Have you used tobacco products in the last 12 months: No Type of Tobacco Use: None Does any household member use tobacco: No Alcohol Use: None Do you use any recreational Drugs:: No Lives With: Family Lives Where: Home - infectious screening In the last 2 months have you had wt loss of >10#?: NO Have you had fever, night sweats or hemotysis?: No Have you traveled outside the country in the last 6 months?: No Isolation: Standard ROS - Review of Systems Constitutional: Weakness, Fatigue Eyes: negative: Eye Pain, Discharge ENTM: negative: Ear Pain, Nose Discharge, Nose Congestion Respiratoy: Short of Breath. negative: Wheezing, Hemoptysis Cardiovascular: Chest Pain Gastrointestinal/Abdominal: negative: Abdominal Pain, Nausea, Vomiting Genitourinary: Other (URINARY INCONTENNCE.) Neurological: Weakness (LF SIDE) Musculoskeletal: Joint Pain Integumentary: Rash Hematologic/Lymphatic: Easy Bleeding Endocrine: negative: Flushing Unable to Obtain Due To: Altered mental status PE - Vitals Vital Signs: Temp Pulse Resp BP BP BP Pulse Ox 11/27/17 11:03 98.0 F 95 H 16 182/89 99 09/19/17 20:00 155/71 155/71 09/18/17 08:00 134/61 - General Limitations: Altered Mental Status General Appearance: Alert - Head Head Exam: Normal Inspection Head Exam Physical: Other (NONE) - Eyes Eye exam: PERRL, EOMI. negative: Scleral Icterus, Conjunctival Injection, Periorbital Swelling, Periorbital Tenderness Pupils: Regular, Round: Bilateral, Reactive: Bilateral - ENT ENT Exam: Normal Oropharynx, Normal External Ear Exam, TM's Normal Bilaterally External Ear Exam: Normal External Inspection TM/Canal Exam: Bilateral Normal Nose Exam: Normal Nose Exam Mouth Exam: Normal Inspection Throat Exam: Normal Inspection - Neck Neck Exam: Normal Inspection - Chest Chest Inspection: Symmetric Chest Wall Rise - Respiratory Respiratory Exam: Normal Lung Sounds Bilat, Respiratory Distress Respiratory Exam: Bilateral Wheezing, Bilateral Rhonchi, Lower Wheezing, Lower Rhonchi - Cardiovascular Cardiovascular Exam: Regular Rate, Normal Rhythm, Normal Heart Sounds - Abdominal Exam Abdominal Exam: Normal Bowel Sounds, Soft. negative: Tenderness - Back Back Exam: Normal Inspection - Neurological Neurological Exam: Alert. negative: Oriented X3 Speech: Other (CONFUSION) Cranial Nerve Exam: Gag reflex (XI): Normal Motor Strength - LUE: 5/5 Motor Strength - RUE: 4/5 Motor Strength - LLE: 5/5 Motor Strength - RLE: 5/5 - Psychological Psychiatric Exam: Anxious - Skin Skin Exam: Erythema MDM - Differential Diagnosis Metabolic: DKA, Hypernatremia, Hypoglycemia, Hyponatremia Structural: CVA Infectious: Sepsis, UTI Course - Treatment Treatment: SEE ORDERS. - Consultation Consultation Comments: DISCUSS PATIENT WITH ALVAREZ. HE WILL ADMIT PATIENT. - Education/Counseling Education/Counseling: Patient, Family, Education Educated On: Diagnosis, Needs for Follow Up ROR - Labs Reviewed Laboratory Results Reviewed?: Yes Result Diagrams: 11/27/17 12:23 11/27/17 12:23 Laboratory: WBC 8.3 X10^3/uL (3.6-10.0) 11/27/17 12:23 RBC 4.95 X10^6/uL (3.5-5.4) 11/27/17 12:23 Hgb 15.2 g/dL (12.0-16.0) 11/27/17 12:23 Hct 44.4 % (36.0-47.0) 11/27/17 12:23 MCV 89.6 fL (80.0-100.0) 11/27/17 12:23 MCH 30.6 pg (27.0-34.0) 11/27/17 12:23 MCHC 34.2 g/dL (33.0-35.0) 11/27/17 12:23 RDW 15.0 % (11.6-16.5) 11/27/17 12:23 Plt Count 188 X10^3/uL (150.0-450.0) 11/27/17 12:23 MPV 8.1 fL (7.4-11.0) 11/27/17 12:23 Neut % 61.9 % (42.0-75.0) 11/27/17 12:23 Lymph % 25.3 % (21.0-51.0) 11/27/17 12:23 [place] % 8.3 % (0.0-13.0) 11/27/17 12:23 Eos % 3.8 % (0.9-2.9) H 11/27/17 12:23 Baso % 0.7 % (0.2-1.0) 11/27/17 12:23 Neut # 5.2 x10^3/uL (2.2-4.8) H 11/27/17 12:23 Lymph # 2.1 X10^3/uL (1.3-2.9) 11/27/17 12:23 [place] # 0.7 x10^3/uL (0.3-0.8) 11/27/17 12:23 Eos # 0.3 x10^3/uL (0.0-0.2) H 11/27/17 12:23 Baso # 0.1 X10^3/uL (0.0-0.1) 11/27/17 12:23 Absolute Nucleated RBC 0.4 /100WBC 11/27/17 12:23 Sodium 133 mmol/L (136-145) L 11/27/17 12:23 Corrected Sodium 138 mmol/L (136-145) 11/27/17 12:23 Potassium 4.1 mmol/L (3.5-5.1) 11/27/17 12:23 Chloride 101 mmol/L (98-107) 11/27/17 12:23 Carbon Dioxide 21.8 mmol/L (21-32) 11/27/17 12:23 BUN 17 mg/dL (7-18) 11/27/17 12:23 Creatinine 1.32 mg/dL (0.55-1.02) H 11/27/17 12:23 Est GFR (MDRD) Af Amer 51 (>60) L 11/27/17 12:23 Est GFR (MDRD) Non-Af 42 (>60) L 11/27/17 12:23 Glucose 321 mg/dL (65-99) H 11/27/17 12:23 Calcium 9.5 mg/dL (8.5-10.1) 11/27/17 12:23 Corrected Calcium TNP 11/27/17 12:23 Total Bilirubin 0.40 mg/dL (0.2-1.0) 11/27/17 12:23 AST 16 Units/L (15-37) 11/27/17 12:23 ALT 24 Units/L (12-78) 11/27/17 12:23 Alkaline Phosphatase 109 Units/L (46-116) 11/27/17 12:23 Creatine Kinase 59 Units/L (26-192) 11/27/17 12:23 Troponin I < 0.02 ng/mL (0-1.5) 11/27/17 12:23 Total Protein 7.9 g/dL (6.4-8.2) 11/27/17 12:23 Albumin 3.7 g/dL (3.4-5.0) 11/27/17 12:23 Globulin 4.2 g/dL (2.5-4.5) 11/27/17 12:23 Albumin/Globulin Ratio 0.9 Ratio (1.1-2.1) L 11/27/17 12:23 Specimen Type Catherized urine 11/27/17 13:33 Urine Color Yellow (YELLOW) 11/27/17 13:33 Urine Appearance Hazy (CLEAR) 11/27/17 13:33 Urine pH 5.0 (5.0 - 8.0) 11/27/17 13:33 Ur Specific [place] 1.025 (1.000-1.030) 11/27/17 13:33 Urine Protein 2+ (NEGATIVE) 11/27/17 13:33 Urine Glucose (UA) 2+ (NEGATIVE) 11/27/17 13:33 Urine Ketones Negative (NEGATIVE) 11/27/17 13:33 Urine Occult Blood 2+ (NEGATIVE) 11/27/17 13:33 Urine Nitrite Negative (NEGATIVE) 11/27/17 13:33 Urine Bilirubin Negative (NEGATIVE) 11/27/17 13:33 Urine Urobilinogen Normal (NORMAL) 11/27/17 13:33 Ur Leukocyte Esterase 2+ (NEGATIVE) 11/27/17 13:33 Urine RBC 15-20 /HPF (NEGATIVE) 11/27/17 13:33 Urine WBC 20-30 /HPF (NEGATIVE) 11/27/17 13:33 Ur Squamous Epith Cells Rare /HPF (NEGATIVE) 11/27/17 13:33 Amorphous Sediment 2+ /HPF (NEGATIVE) 11/27/17 13:33 Urine Bacteria 2+ /HPF (NEGATIVE) 11/27/17 13:33 Ur Culture Indicated? Yes/culture set up 11/27/17 13:33 - XRAY XRAY Interpreted by: Radiologist XRAY Findings: REPORT NOTED - EKG Rhythm: NSR (EKG NOTED) - Diagnosis Discharge Problem: Mental status alteration Qualifiers: Altered mental status type: disorientation Qualified Code(s): R41.0 - Disorientation, unspecified UTI (urinary tract infection) Qualifiers: Urinary tract infection type: site unspecified Hematuria presence: without hematuria Qualified Code(s): N39.0 - Urinary tract infection, site not specified - Discharge Plan Disposition: ADMITTED INPATIENT Condition: Stable - Follow ups/Referrals - Instructions
[2017-11-27 12:33] LABS: BASOPHILS # (AUTO) 0.1 X10^3/uL (0.0-0.1); BASOPHILS % (AUTO) 0.7 % (0.2-1.0); EOSINOPHILS # (AUTO) 0.3 x10^3/uL (0.0-0.2); EOSINOPHILS % (AUTO) 3.8 % (0.9-2.9); HEMATOCRIT 44.4 % (36.0-47.0); HEMOGLOBIN 15.2 g/dL (12.0-16.0); LYMPHOCYTES # (AUTO) 2.1 X10^3/uL (1.3-2.9); LYMPHOCYTES % (AUTO) 25.3 % (21.0-51.0); MEAN CORPUSCULAR HEMOGLOBIN 30.6 pg (27.0-34.0); MEAN CORPUSCULAR HGB CONC 34.2 g/dL (33.0-35.0); MEAN CORPUSCULAR VOLUME 89.6 fL (80.0-100.0); MEAN PLATELET VOLUME 8.1 fL (7.4-11.0); MONOCYTES # (AUTO) 0.7 x10^3/uL (0.3-0.8); MONOCYTES % (AUTO) 8.3 % (0.0-13.0); NEUTROPHILS # (AUTO) 5.2 x10^3/uL (2.2-4.8); NEUTROPHILS % (AUTO) 61.9 % (42.0-75.0); PLATELET COUNT 188 X10^3/uL (150.0-450.0); RED BLOOD COUNT 4.95 X10^6/uL (3.5-5.4); WHITE BLOOD COUNT 8.3 X10^3/uL (3.6-10.0)
[2017-11-27 12:49] LABS: BLOOD UREA NITROGEN 17 mg/dL (7-18); CALCIUM 9.5 mg/dL (8.5-10.1); CARBON DIOXIDE 21.8 mmol/L (21-32); CHLORIDE 101 mmol/L (98-107); COR NA(FOR HYPERGLY) 138 mmol/L (136-145); CREATININE 1.32 mg/dL (0.55-1.02); SODIUM 133 mmol/L (136-145); TROPONIN I < 0.02 ng/mL (0-1.5); eGFR BLACK RACES 51 (>60); eGFR NON BLACK RACES 42 (>60)
--- NOTE | 2017-11-27 12:50 | CT ---
HISTORY: Confusion, history of CVA Study: CT brain without contrast Comparison: MRI 09/02/2017 Technique: Multiple axial images of the brain were obtained from the skull base to the vertex without administra tion of IV contrast. Dose reduction techniques including Automated Exposure Control (AEC) and adjust ment of mA and kV were utilized. Findings: Normal evolutionary changes are seen involving the right MCA infarction with some developing encephal omalacia in this region. There is atrophy and nonspecific white matter hypoattenuation likely related to microvascular ischemic changes. No evidence of acute hemorrhage, midline shift, mass effect or a bnormal extra-axial fluid collection. The ventricular system is symmetric and nondilated. The soft tissues and osseous structures are unremarkable. There is chronic right maxillary sinus disease. The remaining paranasal sinuses are clear. IMPRESSION: 1. Normal evolutionary changes involving the recent right MCA infarction with some developing encepha lomalacia in this region. No acute abnormality identified. 2. Chronic atrophy and microvascular ischemic changes. Reported By:
--- NOTE | 2017-11-27 12:53 | RAD ---
HISTORY: Confusion Study: Chest AP portable Comparison: 09/18/2017 Findings: The patient is status post median sternotomy and CABG. The heart is within normal limits in size. The troy are normal. The lungs are well inflated and free of acute alveolar infiltrates. There is no ple ural effusion present. The bony thorax is unremarkable. IMPRESSION: No significant abnormality identified Reported By:
[2017-11-27 13:16] LABS: ALANINE AMINOTRANSFERASE 24 Units/L (12-78); ALBUMIN 3.7 g/dL (3.4-5.0); ALKALINE PHOSPHATASE 109 Units/L (46-116); ASPARTATE AMINO TRANSFERASE 16 Units/L (15-37); CREATINE KINASE 59 Units/L (26-192); TOTAL PROTEIN 7.9 g/dL (6.4-8.2)
[2017-11-27 13:43] LABS: BILIRUBIN,URINE NEGATIVE (NEGATIVE); BLOOD/HEMOGLOBIN,URINE 2+ (NEGATIVE); GLUCOSE, URINE 2+ (NEGATIVE); KETONES,URINE NEGATIVE (NEGATIVE); LEUKOCYTE ESTERASE ,URINE 2+ (NEGATIVE); NITRITES,URINE NEGATIVE (NEGATIVE); PROTEIN,URINE 2+ (NEGATIVE); UROBILINOGEN,URINE NORMAL (NORMAL)
[2017-11-27 13:50] LABS: APPEARANCE,URINE HAZY (CLEAR); BACTERIA,URINE 2+ /HPF (NEGATIVE); COLOR,URINE YELLOW (YELLOW); RBC,URINE 15-20 /HPF (NEGATIVE); SQUAMOUS EPITHELIAL CELL,UR RARE /HPF (NEGATIVE)
[2017-11-27 13:51] LABS: AMORPHOUS SEDIMENT,UR 2+ /HPF (NEGATIVE)
[2017-11-27] MEDS ORDERED: ROCEPHIN VIAL 1 GM 1 GM in NS 100 ML IV + SPIKE MINIBAG* 100 ML IV ONE (13:55)
[2017-11-27] MEDS ORDERED: NS 100 ML IV 100 ML IV ONE (14:02)
[2017-11-27] MEDS ORDERED: ROCEPHIN VIAL 1 GM ONE (14:03)
[2017-11-27 14:52] LABS: CREATINE KINASE MB 5.3 ng/mL (0-4.0)
[2017-11-27 18:20] VITALS: BMI 18.8
[2017-11-27 20:08] LABS: CKMB % 8.2 % (<4); CREATINE KINASE 67 Units/L (26-192); TROPONIN I < 0.02 ng/mL (0-1.5)
[2017-11-27 20:09] LABS: CREATINE KINASE MB 5.5 ng/mL (0-4.0)
[2017-11-27] MEDS: HumuLIN R SC PRN (20:42)
[2017-11-27] MEDS: PEPCID 20 MG IV PREMIX* 20 MG/50 ML BAG IV SCH (22:15)
[2017-11-28 02:00] LABS: CKMB % 7.5 % (<4); CREATINE KINASE 56 Units/L (26-192); TROPONIN I < 0.02 ng/mL (0-1.5)
[2017-11-28 02:12] LABS: CREATINE KINASE MB 4.2 ng/mL (0-4.0)
[2017-11-28] MEDS: HumuLIN R SC PRN ×3 (06:10→22:09)
[2017-11-28] MEDS ORDERED: NS 500 ML IV 500 ML IV ONE (08:42)
[2017-11-28] MEDS: ROCEPHIN VIAL 1 GM 1 GM in NS 100 ML IV + SPIKE MINIBAG* 100 ML IV SCH (08:48)
[2017-11-28] MEDS: PEPCID 20 MG IV PREMIX* 20 MG/50 ML BAG IV SCH (08:48)
[2017-11-28 09:07] LABS: BASOPHILS # (AUTO) 0.1 X10^3/uL (0.0-0.1); BASOPHILS % (AUTO) 1.2 % (0.2-1.0); EOSINOPHILS # (AUTO) 0.2 x10^3/uL (0.0-0.2); EOSINOPHILS % (AUTO) 3.4 % (0.9-2.9); HEMATOCRIT 39.3 % (36.0-47.0); HEMOGLOBIN 13.6 g/dL (12.0-16.0); LYMPHOCYTES % (AUTO) 15.4 % (21.0-51.0); MEAN CORPUSCULAR HEMOGLOBIN 30.4 pg (27.0-34.0); MEAN CORPUSCULAR HGB CONC 34.6 g/dL (33.0-35.0); MEAN CORPUSCULAR VOLUME 87.8 fL (80.0-100.0); MONOCYTES # (AUTO) 0.4 x10^3/uL (0.3-0.8); PLATELET COUNT 192 X10^3/uL (150.0-450.0); RED BLOOD COUNT 4.47 X10^6/uL (3.5-5.4); WHITE BLOOD COUNT 6.7 X10^3/uL (3.6-10.0)
[2017-11-28 09:22] LABS: ALANINE AMINOTRANSFERASE 24 Units/L (12-78); ALKALINE PHOSPHATASE 90 Units/L (46-116); ASPARTATE AMINO TRANSFERASE 22 Units/L (15-37); BLOOD UREA NITROGEN 15 mg/dL (7-18); CALCIUM 9.1 mg/dL (8.5-10.1); CARBON DIOXIDE 19.7 mmol/L (21-32); CHLORIDE 106 mmol/L (98-107); CHOL/HDL RATIO 3.8 (0.0-5.0); CHOLESTEROL 176 mg/dL (0-200); COR CA(FOR HYPOALB) 9.9 mg/dL (8.5-10.1); COR NA(FOR HYPERGLY) 140 mmol/L (136-145); CREATININE 1.11 mg/dL (0.55-1.02); HDL CHOLESTEROL 46 mg/dL (40-60); MAGNESIUM 1.4 mg/dL (1.7-2.9); SODIUM 136 mmol/L (136-145); TOTAL PROTEIN 6.9 g/dL (6.4-8.2); TRIGLYCERIDES 72 mg/dL (0-150); eGFR BLACK RACES > 60 (>60); eGFR NON BLACK RACES 52 (>60)
[2017-11-28] MEDS ORDERED: ULTRAM PO PRN (11:10)
--- NOTE | 2017-11-28 11:14 | DR.H&P ---
H&P - History & Physical for Day of: H&P Date: 11/27/17 - Chief Complaint Chief Complaint: AMS - Allergies Allergies/Adverse Reactions: Allergies Allergy/AdvReac Type Severity Reaction Status Date / Time No Known Drug Allergies Allergy Verified 11/27/17 11:08 - History of Present Illness History of Present Illness: 72 ER ADMISSION AFTER PRESENTING WITH AMS. PT HAS PMH OF CVA, COPD, CHF, GERD, OA, AFTT. ADMISSION LABS OBTAINED IN ED. PLAN TO HYDRATION, ELECTROLYTE REPLACEMENT, RESUME HOME MEDS. BLOOD SUGAR CONTROL - Past Medical History Past Medical History: Anxiety, COPD, Coronary Artery Disease, CVA, Depression, Diabetes, GERD, Hypertension, [place] Additional Medical History: colon cancer - Past Surgical History Surgical History: Bowel Resection, CABG/Valve Surgery Additional Surgical History: colon cancer resection with colostomy formation - Family History Family Medical History: Diabetes Mellitus, Cancer, Coronary Artery Disease - Social History Does patient currently use any type of tobacco product: No Have you used tobacco products in the last 12 months: No Type of Tobacco Use: None Does any household member use tobacco: No Alcohol Use: None Drug Use: None - Medications Home Medications: Albuterol Neb 2.5MG/ 3Ml [ALBUTEROL NEB 2.5MG/ 3ML *] 1 vial INH TID 11/27/17 [ History Confirmed 11/27/17] Tizanidine HCl [Zanaflex] 1 tab PO TID PRN 11/27/17 [History Confirmed 11/27/17] Tramadol HCl [ULTRAM 50 MG *] 1 tab PO TID PRN 11/27/17 [History Confirmed 11/27] - Review of Systems Constitutional: Weakness Eyes: No Symptoms Reported ENT: No Symptoms Reported Respiratory: Cough, Shortness of Breath Cardiovascular: No Symptoms Reported Gastrointestinal: No Symptoms Reported Genitourinary: No Symptoms Reported Musculoskeletal: Back Pain Skin: No Symptoms Reported Neurological: No Symptoms Reported, Weakness, Confusion (EPISODES OF CONFUSION) - Physical Exam Vital Signs: Temperature 97.8 F Pulse Rate [Right Brachial] 85 Pulse Rate 95 Respiratory Rate 18 Blood Pressure [Right Arm] 173/73 Blood Pressure [Left Arm] 134/61 Blood Pressure 182/89 O2 Sat by Pulse Oximetry 99 Oriented: Person Eyes: Normal Ear: Normal Nose: Normal Throat: Normal Respiratory: RLL Diminished, LLL Diminished Cardiovascular: negative: Edema : Normal Auscultation: Bowel Sounds: Increased Tenderness: Epigastric Skin: Decreased Turgur Musculoskeletal: Motor Deficit, Sensory Deficit, Instability Psychiatric: Anxiety Affect: Anxious Speech Pattern: Clear, Appropriate - Assessment/Plan (1) Mental status alteration Qualifiers: Altered mental status type: disorientation Qualified Code(s): R41.0 - Disorientation, unspecified Status: Acute Plan: ADMIT, R/O SEPSIS. RESUME HOME MEDS. GENTLE HYDRATION. SUPPLEMENTAL O2, RESP THEARPY. RESUME HOME MEDS. CARDIAC MONITORING (2) UTI (urinary tract infection) Qualifiers: Urinary tract infection type: site unspecified Hematuria presence: without hematuria Qualified Code(s): N39.0 - Urinary tract infection, site not specified Status: Acute (3) Hyponatremia Status: Acute (4) CAD (coronary artery disease) Status: Chronic (5) COPD (chronic obstructive pulmonary disease) Status: Chronic (6) Diabetes mellitus, type 2 Qualifiers: Diabetes mellitus complication status: with hyperglycemia Diabetes mellitus usp insulin use: unspecified usp insulin use status Qualified Code(s): E11.65 - Type 2 diabetes mellitus with hyperglycemia Status: Chronic (7) GERD (gastroesophageal reflux disease) Status: Chronic (8) Hypertension Status: Chronic
[2017-11-28] MEDS ORDERED: PROVENTIL NEB TX 0.083% 2.5MG/ 3ML NEB SCH (11:15)
[2017-11-28] MEDS ORDERED: PROVENTIL NEB TX 0.083% 2.5MG/ 3ML ONE (11:56)
[2017-11-28] MEDS: PROVENTIL NEB TX 0.083% 2.5MG/ 3ML NEB SCH ×2 (12:40→18:39)
[2017-11-28] MEDS ORDERED: PROVENTIL NEB TX 0.083% 2.5MG/ 3ML NEB PRN (13:00)
[2017-11-28] MEDS: BUSPAR PO SCH ×2 (13:32→21:03)
[2017-11-28] MEDS ORDERED: BUSPAR ONE (15:13)
[2017-11-28] MEDS ORDERED: BENADRYL INJ 50 MG VIAL IVP ONE (15:40)
[2017-11-28] MEDS ORDERED: HALDOL PO ONE (15:41)
[2017-11-28] MEDS ORDERED: HALDOL INJ ONE (15:45)
[2017-11-28] MEDS ORDERED: HALDOL INJ IVP ONE (15:48)
[2017-11-28] MEDS ORDERED: ROCEPHIN VIAL 1 GM 1 GM in NS 100 ML IV + SPIKE MINIBAG* 100 ML IV SCH (18:15)
[2017-11-28] MEDS ORDERED: HALDOL INJ IVP PRN (19:21)
[2017-11-28] MEDS: LOPRESSOR TAB 25 MG PO SCH (21:02)
[2017-11-29] MEDS: PROVENTIL NEB TX 0.083% 2.5MG/ 3ML NEB SCH ×7 (00:22→20:53)
[2017-11-29] MEDS: PEPCID 20 MG IV PREMIX* 20 MG/50 ML BAG IV SCH ×3 (02:13→21:11)
[2017-11-29] MEDS: HumuLIN R SC PRN ×4 (05:23→22:07)
[2017-11-29 05:33] LABS: BASOPHILS # (AUTO) 0.1 X10^3/uL (0.0-0.1); BASOPHILS % (AUTO) 1.1 % (0.2-1.0); EOSINOPHILS # (AUTO) 0.3 x10^3/uL (0.0-0.2); EOSINOPHILS % (AUTO) 4.3 % (0.9-2.9); HEMATOCRIT 39.4 % (36.0-47.0); HEMOGLOBIN 13.5 g/dL (12.0-16.0); LYMPHOCYTES # (AUTO) 1.3 X10^3/uL (1.3-2.9); LYMPHOCYTES % (AUTO) 20.2 % (21.0-51.0); MEAN CORPUSCULAR HEMOGLOBIN 30.4 pg (27.0-34.0); MEAN CORPUSCULAR HGB CONC 34.2 g/dL (33.0-35.0); MEAN CORPUSCULAR VOLUME 88.6 fL (80.0-100.0); MEAN PLATELET VOLUME 8.4 fL (7.4-11.0); MONOCYTES # (AUTO) 0.5 x10^3/uL (0.3-0.8); MONOCYTES % (AUTO) 6.8 % (0.0-13.0); NEUTROPHILS # (AUTO) 4.5 x10^3/uL (2.2-4.8); NEUTROPHILS % (AUTO) 67.6 % (42.0-75.0); PLATELET COUNT 195 X10^3/uL (150.0-450.0); RED BLOOD COUNT 4.44 X10^6/uL (3.5-5.4); WHITE BLOOD COUNT 6.6 X10^3/uL (3.6-10.0)
[2017-11-29 05:52] LABS: ALANINE AMINOTRANSFERASE 21 Units/L (12-78); ALBUMIN 3.1 g/dL (3.4-5.0); ALKALINE PHOSPHATASE 86 Units/L (46-116); ASPARTATE AMINO TRANSFERASE 18 Units/L (15-37); BLOOD UREA NITROGEN 19 mg/dL (7-18); CALCIUM 9.6 mg/dL (8.5-10.1); CARBON DIOXIDE 20.7 mmol/L (21-32); CHLORIDE 105 mmol/L (98-107); COR CA(FOR HYPOALB) 10.3 mg/dL (8.5-10.1); COR NA(FOR HYPERGLY) 141 mmol/L (136-145); SODIUM 138 mmol/L (136-145); TOTAL PROTEIN 6.8 g/dL (6.4-8.2); eGFR BLACK RACES > 60 (>60); eGFR NON BLACK RACES 52 (>60)
--- NOTE | 2017-11-29 08:10 | RAD ---
History: Chest pain and dyspnea. Exam: Single view of the chest. Comparison: 11/27/2017. Findings: The trachea is midline. The cardiomediastinal silhouette is within normal limits. There is no evidence for CHF or pulmonary edema. There is no pneumothorax or mediastinal shift. The lungs are clear without consolidation, effusion, or pneumothorax. The chest is hyperinflated with an increased AP dimension of the chest, diaphragmatic flattening, and central interstitial changes which would be compatible with changes of obstructive airways disease. No acute cardiopulmonary changes are observed . No acute bony abnormalities are seen. Impression: 1. No acute cardiopulmonary changes seen. 2. Findings of obstructive airways disease. Reported By:
[2017-11-29] MEDS: LOPRESSOR TAB 25 MG PO SCH ×2 (09:26→21:11)
[2017-11-29] MEDS: PLAVIX PO SCH (09:26)
[2017-11-29] MEDS: BUSPAR PO SCH ×2 (09:26→21:11)
[2017-11-29] MEDS: GLUCOTROL XL PO SCH (09:27)
[2017-11-29] MEDS: LEVEMIR SC SCH (09:27)
[2017-11-29] MEDS: CELEXA PO SCH (09:27)
[2017-11-29] MEDS: ROCEPHIN VIAL 1 GM 1 GM in NS 100 ML IV + SPIKE MINIBAG* 100 ML IV SCH (11:05)
[2017-11-29 14:40] LABS: APPEARANCE,URINE CLOUDY (CLEAR); COLOR,URINE YELLOW (YELLOW)
[2017-11-29 14:46] LABS: BILIRUBIN,URINE NEGATIVE (NEGATIVE); BLOOD/HEMOGLOBIN,URINE 3+ (NEGATIVE); GLUCOSE, URINE 3+ (NEGATIVE); KETONES,URINE 1+ (NEGATIVE); LEUKOCYTE ESTERASE ,URINE 3+ (NEGATIVE); NITRITES,URINE NEGATIVE (NEGATIVE); PROTEIN,URINE 2+ (NEGATIVE); UROBILINOGEN,URINE NORMAL (NORMAL)
[2017-11-29 15:14] LABS: BACTERIA,URINE 1+ /HPF (NEGATIVE); SQUAMOUS EPITHELIAL CELL,UR NEGATIVE /HPF (NEGATIVE)
[2017-11-29 15:15] LABS: YEAST,URINE NUMEROUS /HPF (NEGATIVE)
[2017-11-29] MEDS: NYSTATIN POWDER TOP SCH ×2 (15:42→21:11)
[2017-11-29] MEDS: BUTT CREAM (COMPOUND) TOP PRN (23:56)
[2017-11-30] MEDS: PROVENTIL NEB TX 0.083% 2.5MG/ 3ML NEB SCH ×4 (01:06→20:43)
[2017-11-30] MEDS ORDERED: NS 500 ML IV 500 ML IV ONE (04:33)
[2017-11-30 06:10] LABS: BASOPHILS # (AUTO) 0.1 X10^3/uL (0.0-0.1); BASOPHILS % (AUTO) 0.8 % (0.2-1.0); EOSINOPHILS # (AUTO) 0.2 x10^3/uL (0.0-0.2); EOSINOPHILS % (AUTO) 2.2 % (0.9-2.9); HEMOGLOBIN 13.7 g/dL (12.0-16.0); LYMPHOCYTES # (AUTO) 1.2 X10^3/uL (1.3-2.9); LYMPHOCYTES % (AUTO) 15.5 % (21.0-51.0); MEAN CORPUSCULAR HEMOGLOBIN 30.5 pg (27.0-34.0); MEAN CORPUSCULAR HGB CONC 34.2 g/dL (33.0-35.0); MEAN CORPUSCULAR VOLUME 89.1 fL (80.0-100.0); MEAN PLATELET VOLUME 8.5 fL (7.4-11.0); MONOCYTES # (AUTO) 0.5 x10^3/uL (0.3-0.8); MONOCYTES % (AUTO) 6.5 % (0.0-13.0); NEUTROPHILS # (AUTO) 5.9 x10^3/uL (2.2-4.8); PLATELET COUNT 199 X10^3/uL (150.0-450.0); RED BLOOD COUNT 4.49 X10^6/uL (3.5-5.4); RED CELL DISTRIBUTION WIDTH 14.9 % (11.6-16.5); WHITE BLOOD COUNT 7.9 X10^3/uL (3.6-10.0)
[2017-11-30] MEDS: HumuLIN R SC PRN ×4 (06:16→20:42)
[2017-11-30 07:11] LABS: ALANINE AMINOTRANSFERASE 17 Units/L (12-78); ALBUMIN 3.1 g/dL (3.4-5.0); ALKALINE PHOSPHATASE 90 Units/L (46-116); ASPARTATE AMINO TRANSFERASE 17 Units/L (15-37); BLOOD UREA NITROGEN 27 mg/dL (7-18); CALCIUM 9.5 mg/dL (8.5-10.1); CHLORIDE 104 mmol/L (98-107); COR CA(FOR HYPOALB) 10.2 mg/dL (8.5-10.1); COR NA(FOR HYPERGLY) 139 mmol/L (136-145); CREATININE 1.04 mg/dL (0.55-1.02); SODIUM 136 mmol/L (136-145); TOTAL PROTEIN 6.9 g/dL (6.4-8.2); eGFR BLACK RACES > 60 (>60); eGFR NON BLACK RACES 56 (>60)
[2017-11-30] MEDS: LEVEMIR SC SCH (08:57)
[2017-11-30] MEDS: ROCEPHIN VIAL 1 GM 1 GM in NS 100 ML IV + SPIKE MINIBAG* 100 ML IV SCH (08:57)
[2017-11-30] MEDS: CELEXA PO SCH (08:58)
[2017-11-30] MEDS: GLUCOTROL XL PO SCH (08:58)
[2017-11-30] MEDS: PEPCID 20 MG IV PREMIX* 20 MG/50 ML BAG IV SCH ×2 (08:58→20:35)
[2017-11-30] MEDS: BUSPAR PO SCH ×2 (08:58→20:36)
[2017-11-30] MEDS: PLAVIX PO SCH (08:58)
[2017-11-30] MEDS: LOPRESSOR TAB 25 MG PO SCH ×2 (08:58→20:37)
[2017-11-30] MEDS: NYSTATIN POWDER TOP SCH ×2 (09:00→20:41)
[2017-11-30] MEDS: MEGACE PO SCH (20:36)
[2017-11-30] MEDS: TAB-A-VITE PO SCH (20:36)
[2017-11-30] MEDS: VITAMIN C PO SCH (20:36)
[2017-11-30] MEDS: SNACK - Diabetic Appropriate PO SCH (20:46)
[2017-12-01 05:27] LABS: BASOPHILS % (AUTO) 0.6 % (0.2-1.0); EOSINOPHILS # (AUTO) 0.1 x10^3/uL (0.0-0.2); EOSINOPHILS % (AUTO) 1.8 % (0.9-2.9); HEMATOCRIT 39.9 % (36.0-47.0); HEMOGLOBIN 13.7 g/dL (12.0-16.0); LYMPHOCYTES # (AUTO) 1.2 X10^3/uL (1.3-2.9); LYMPHOCYTES % (AUTO) 15.3 % (21.0-51.0); MEAN CORPUSCULAR HEMOGLOBIN 30.4 pg (27.0-34.0); MEAN CORPUSCULAR HGB CONC 34.2 g/dL (33.0-35.0); MEAN CORPUSCULAR VOLUME 88.9 fL (80.0-100.0); MEAN PLATELET VOLUME 8.4 fL (7.4-11.0); MONOCYTES # (AUTO) 0.5 x10^3/uL (0.3-0.8); MONOCYTES % (AUTO) 6.4 % (0.0-13.0); NEUTROPHILS # (AUTO) 6.2 x10^3/uL (2.2-4.8); NEUTROPHILS % (AUTO) 75.9 % (42.0-75.0); PLATELET COUNT 208 X10^3/uL (150.0-450.0); RED BLOOD COUNT 4.49 X10^6/uL (3.5-5.4); RED CELL DISTRIBUTION WIDTH 14.6 % (11.6-16.5); WHITE BLOOD COUNT 8.2 X10^3/uL (3.6-10.0)
[2017-12-01 05:46] LABS: ALANINE AMINOTRANSFERASE 18 Units/L (12-78); ALBUMIN 3.3 g/dL (3.4-5.0); ALKALINE PHOSPHATASE 86 Units/L (46-116); ASPARTATE AMINO TRANSFERASE 14 Units/L (15-37); BLOOD UREA NITROGEN 24 mg/dL (7-18); CALCIUM 9.2 mg/dL (8.5-10.1); CARBON DIOXIDE 19.8 mmol/L (21-32); CHLORIDE 105 mmol/L (98-107); COR CA(FOR HYPOALB) 9.8 mg/dL (8.5-10.1); COR NA(FOR HYPERGLY) 140 mmol/L (136-145); SODIUM 137 mmol/L (136-145); TOTAL PROTEIN 7.1 g/dL (6.4-8.2); eGFR BLACK RACES > 60 (>60); eGFR NON BLACK RACES 58 (>60)
[2017-12-01] MEDS: BUTT CREAM (COMPOUND) TOP PRN (05:53)
[2017-12-01] MEDS: PROVENTIL NEB TX 0.083% 2.5MG/ 3ML NEB SCH ×3 (06:35→20:30)
[2017-12-01] MEDS: ROCEPHIN VIAL 1 GM 1 GM in NS 100 ML IV + SPIKE MINIBAG* 100 ML IV SCH (09:07)
[2017-12-01] MEDS: BUSPAR PO SCH ×2 (09:08→21:01)
[2017-12-01] MEDS: GLUCOTROL XL PO SCH (09:08)
[2017-12-01] MEDS: VITAMIN C PO SCH (09:10)
[2017-12-01] MEDS: MEGACE PO SCH ×2 (09:10→21:01)
[2017-12-01] MEDS: PLAVIX PO SCH (09:10)
[2017-12-01] MEDS: LOPRESSOR TAB 25 MG PO SCH ×2 (09:10→21:01)
[2017-12-01] MEDS: CELEXA PO SCH (09:10)
[2017-12-01] MEDS: LEVEMIR SC SCH (09:10)
[2017-12-01] MEDS: PEPCID 20 MG IV PREMIX* 20 MG/50 ML BAG IV SCH ×2 (09:12→21:01)
[2017-12-01] MEDS: NYSTATIN POWDER TOP SCH ×2 (09:12→21:06)
[2017-12-01] MEDS: TAB-A-VITE PO SCH (09:12)
[2017-12-01] MEDS: HumuLIN R SC PRN ×3 (12:55→21:07)
[2017-12-01] MEDS: SNACK - Diabetic Appropriate PO SCH (21:06)
[2017-12-02] MEDS: PROVENTIL NEB TX 0.083% 2.5MG/ 3ML NEB SCH ×2 (05:12→13:55)
[2017-12-02] MEDS: HumuLIN R SC PRN ×3 (05:36→17:21)
[2017-12-02 06:48] LABS: BASOPHILS # (AUTO) 0.1 X10^3/uL (0.0-0.1); BASOPHILS % (AUTO) 0.9 % (0.2-1.0); EOSINOPHILS # (AUTO) 0.1 x10^3/uL (0.0-0.2); EOSINOPHILS % (AUTO) 1.3 % (0.9-2.9); HEMOGLOBIN 14.8 g/dL (12.0-16.0); MEAN CORPUSCULAR HEMOGLOBIN 30.3 pg (27.0-34.0); MEAN CORPUSCULAR HGB CONC 33.6 g/dL (33.0-35.0); MEAN CORPUSCULAR VOLUME 90.4 fL (80.0-100.0); MEAN PLATELET VOLUME 8.3 fL (7.4-11.0); MONOCYTES % (AUTO) 9.7 % (0.0-13.0); NEUTROPHILS # (AUTO) 6.7 x10^3/uL (2.2-4.8); NEUTROPHILS % (AUTO) 68.1 % (42.0-75.0); PLATELET COUNT 221 X10^3/uL (150.0-450.0); RED BLOOD COUNT 4.87 X10^6/uL (3.5-5.4); WHITE BLOOD COUNT 9.8 X10^3/uL (3.6-10.0)
[2017-12-02 07:01] LABS: ALANINE AMINOTRANSFERASE 21 Units/L (12-78); ALBUMIN 3.2 g/dL (3.4-5.0); ALKALINE PHOSPHATASE 87 Units/L (46-116); ASPARTATE AMINO TRANSFERASE 24 Units/L (15-37); BLOOD UREA NITROGEN 28 mg/dL (7-18); CARBON DIOXIDE 17.2 mmol/L (21-32); CHLORIDE 104 mmol/L (98-107); SODIUM 134 mmol/L (136-145); TOTAL PROTEIN 7.1 g/dL (6.4-8.2)
[2017-12-02 07:31] LABS: CALCIUM 9.3 mg/dL (8.5-10.1); COR CA(FOR HYPOALB) 9.9 mg/dL (8.5-10.1); COR NA(FOR HYPERGLY) 138 mmol/L (136-145); CREATININE 1.05 mg/dL (0.55-1.02); eGFR BLACK RACES > 60 (>60); eGFR NON BLACK RACES 55 (>60)
[2017-12-02] MEDS: PEPCID 20 MG IV PREMIX* 20 MG/50 ML BAG IV SCH (09:05)
[2017-12-02] MEDS: CELEXA PO SCH (09:07)
[2017-12-02] MEDS: VITAMIN C PO SCH (09:07)
[2017-12-02] MEDS: TAB-A-VITE PO SCH (09:07)
[2017-12-02] MEDS: PLAVIX PO SCH (09:07)
[2017-12-02] MEDS: BUSPAR PO SCH (09:08)
[2017-12-02] MEDS: GLUCOTROL XL PO SCH (09:08)
[2017-12-02] MEDS: LOPRESSOR TAB 25 MG PO SCH (09:08)
[2017-12-02] MEDS: MEGACE PO SCH (09:08)
[2017-12-02] MEDS: ROCEPHIN VIAL 1 GM 1 GM in NS 100 ML IV + SPIKE MINIBAG* 100 ML IV SCH (09:09)
[2017-12-02] MEDS: NYSTATIN POWDER TOP SCH (09:10)
[2017-12-02] MEDS: LEVEMIR SC SCH (09:10)
--- NOTE | 2017-12-02 13:53 | PCM.PROG ---
Progress Note - Progress Note for Day of Date: 12/02/17 - Subjective Subjective: Mister Barnett is a 72-year-old white female who is admitted with altered mental status, dehydration and UTI and sacral decubitus. She is currently awaiting permanent senior care placement. Patient denies any pain this morning. Discussed plan of care with patient. - Past Medical Family Social History Past Med/Fam/Surg Hx: No changes since H&P Allergies: Allergies No Known Drug Allergies Allergy (Verified 11/27/17 11:08) - Review of Systems ROS: No change since H&P - Vital Signs and I&O's Vital Signs: Temperature 97.3 F Pulse Rate [Left Brachial] 86 Pulse Rate [Right Brachial] 69 Pulse Rate 69 Respiratory Rate 18 Blood Pressure [Right Arm] 138/72 Blood Pressure [Left Arm] 149/68 Blood Pressure 182/89 O2 Sat by Pulse Oximetry 100 Intake and Output: Intake & Output 11/30/17 12/01/17 12/02/17 12/03/17 11:59 11:59 11:59 11:59 Intake Total 1177 970 570 Output Total 800 1025 850 Balance 377 -55 -280 - Physical Exam Oriented: Person Eyes: Normal Ear: Normal Nose: Normal Throat: Normal Respiratory: Diminished Cardiovascular: negative: Edema : Normal Auscultation: Bowel Sounds: Increased Tenderness: Epigastric Skin: Decreased Turgur, Wound (sacral decubitus stage 2) Musculoskeletal: Motor Deficit, Sensory Deficit, Instability Psychiatric: Anxiety Affect: Anxious Speech Pattern: Unclear - Laboratory and Diagnostics Result Diagrams: 12/02/17 06:19 12/02/17 06:19 Labs: 11/27/17 12:23 Blood Blood Culture - Final 11/27/17 12:12 Blood Blood Culture - Final 11/29/17 14:20 Sacral Gram Stain - Final 11/29/17 14:20 Sacral Wound Culture - Preliminary 11/29/17 14:20 Urine,Clean Catch Urine Culture - Final 11/27/17 13:33 Urine,Catheterized Urine Culture - Final Laboratory WBC 9.8 X10^3/uL (3.6-10.0) 12/02/17 06:19 RBC 4.87 X10^6/uL (3.5-5.4) 12/02/17 06:19 Hgb 14.8 g/dL (12.0-16.0) 12/02/17 06:19 Hct 44.0 % (36.0-47.0) 12/02/17 06:19 MCV 90.4 fL (80.0-100.0) 12/02/17 06:19 MCH 30.3 pg (27.0-34.0) 12/02/17 06:19 MCHC 33.6 g/dL (33.0-35.0) 12/02/17 06:19 RDW 15.0 % (11.6-16.5) 12/02/17 06:19 Plt Count 221 X10^3/uL (150.0-450.0) 12/02/17 06:19 MPV 8.3 fL (7.4-11.0) 12/02/17 06:19 Neut % 68.1 % (42.0-75.0) 12/02/17 06:19 Lymph % 20.0 % (21.0-51.0) L 12/02/17 06:19 Gila % 9.7 % (0.0-13.0) 12/02/17 06:19 Eos % 1.3 % (0.9-2.9) 12/02/17 06:19 Baso % 0.9 % (0.2-1.0) 12/02/17 06:19 Neut # 6.7 x10^3/uL (2.2-4.8) H 12/02/17 06:19 Lymph # 2.0 X10^3/uL (1.3-2.9) 12/02/17 06:19 [place]ila # 1.0 x10^3/uL (0.3-0.8) H 12/02/17 06:19 Eos # 0.1 x10^3/uL (0.0-0.2) 12/02/17 06:19 Baso # 0.1 X10^3/uL (0.0-0.1) 12/02/17 06:19 Absolute Nucleated RBC 0.2 /100WBC 12/02/17 06:19 INR Target Range - 11/28/17 09:00 INR 0.97 (0.8-1.3) 11/28/17 09:00 PTT 21.9 SECONDS (22.9-36.5) L 11/28/17 09:00 PTT Comment - 11/28/17 09:00 Sodium 134 mmol/L (136-145) L 12/02/17 06:19 Corrected Sodium 138 mmol/L (136-145) 12/02/17 06:19 Potassium 5.0 mmol/L (3.5-5.1) 12/02/17 06:19 Chloride 104 mmol/L (98-107) 12/02/17 06:19 Carbon Dioxide 17.2 mmol/L (21-32) L 12/02/17 06:19 BUN 28 mg/dL (7-18) H 12/02/17 06:19 Creatinine 1.05 mg/dL (0.55-1.02) H 12/02/17 06:19 Est GFR (MDRD) Af Amer > 60 (>60) 12/02/17 06:19 Est GFR (MDRD) Non-Af 55 (>60) L 12/02/17 06:19 Glucose 263 mg/dL (65-99) H 12/02/17 06:19 POC Glucose (mg/dL) 315 mg/dL (65-99) H 12/02/17 11:15 Calcium 9.3 mg/dL (8.5-10.1) 12/02/17 06:19 Corrected Calcium 9.9 mg/dL (8.5-10.1) 12/02/17 06:19 Magnesium 1.4 mg/dL (1.7-2.9) L 11/28/17 09:00 Total Bilirubin 0.30 mg/dL (0.2-1.0) 12/02/17 06:19 AST 24 Units/L (15-37) 12/02/17 06:19 ALT 21 Units/L (12-78) 12/02/17 06:19 Alkaline Phosphatase 87 Units/L (46-116) 12/02/17 06:19 Creatine Kinase 56 Units/L (26-192) 11/28/17 01:00 CK-MB (CK-2) 4.2 ng/mL (0-4.0) H* 11/28/17 01:00 CK/CKMB % Calc 7.5 % (<4) 11/28/17 01:00 Troponin I < 0.02 ng/mL (0-1.5) 11/28/17 01:00 Total Protein 7.1 g/dL (6.4-8.2) 12/02/17 06:19 Albumin 3.2 g/dL (3.4-5.0) L 12/02/17 06:19 Globulin 3.9 g/dL (2.5-4.5) 12/02/17 06:19 Albumin/Globulin Ratio 0.8 Ratio (1.1-2.1) L 12/02/17 06:19 Triglycerides 72 mg/dL (0-150) 11/28/17 09:00 Cholesterol 176 mg/dL (0-200) 11/28/17 09:00 LDL Cholesterol, Calc 116 mg/dL (0-100) H 11/28/17 09:00 HDL Cholesterol 46 mg/dL (40-60) 11/28/17 09:00 Cholesterol/HDL Ratio 3.8 (0.0-5.0) 11/28/17 09:00 Specimen Type Catherized urine 11/29/17 14:20 Urine Color Yellow (YELLOW) 11/29/17 14:20 Urine Appearance Cloudy (CLEAR) 11/29/17 14:20 Urine pH 5.0 (5.0 - 8.0) 11/29/17 14:20 Ur Specific [place] 1.020 (1.000-1.030) 11/29/17 14:20 Urine Protein 2+ (NEGATIVE) 11/29/17 14:20 Urine Glucose (UA) 3+ (NEGATIVE) 11/29/17 14:20 Urine Ketones 1+ (NEGATIVE) 11/29/17 14:20 Urine Occult Blood 3+ (NEGATIVE) 11/29/17 14:20 Urine Nitrite Negative (NEGATIVE) 11/29/17 14:20 Urine Bilirubin Negative (NEGATIVE) 11/29/17 14:20 Urine Urobilinogen Normal (NORMAL) 11/29/17 14:20 Ur Leukocyte Esterase 3+ (NEGATIVE) 11/29/17 14:20 Urine RBC 5-10 /HPF (NEGATIVE) 11/29/17 14:20 Urine WBC Tntc /HPF (NEGATIVE) 11/29/17 14:20 Ur Squamous Epith Cells Negative /HPF (NEGATIVE) 11/29/17 14:20 Amorphous Sediment 2+ /HPF (NEGATIVE) 11/27/17 13:33 Urine Bacteria 1+ /HPF (NEGATIVE) 11/29/17 14:20 Urine Yeast Numerous /HPF (NEGATIVE) 11/29/17 14:20 Ur Culture Indicated? Yes/culture set up 11/29/17 14:20 - Plan (1) Mental status alteration Status: Acute Qualifiers: Altered mental status type: disorientation Qualified Code(s): R41.0 - Disorientation, unspecified Plan: MONTIOR. RESUME HOME MEDS. GENTLE HYDRATION. SUPPLEMENTAL O2, RESP THEARPY. RESUME HOME MEDS. CARDIAC MONITORING (2) UTI (urinary tract infection) Status: Acute Qualifiers: Urinary tract infection type: site unspecified Hematuria presence: without hematuria Qualified Code(s): N39.0 - Urinary tract infection, site not specified Plan: IV ROCEPHIN (3) Hyponatremia Status: Acute (4) CAD (coronary artery disease) Status: Chronic (5) COPD (chronic obstructive pulmonary disease) Status: Chronic (6) Diabetes mellitus, type 2 Status: Chronic Qualifiers: Diabetes mellitus complication status: with hyperglycemia Diabetes mellitus terminologist insulin use: unspecified terminologist insulin use status Qualified Code(s): E11.65 - Type 2 diabetes mellitus with hyperglycemia (7) GERD (gastroesophageal reflux disease) Status: Chronic (8) Hypertension Status: Chronic (9) Sacral decubitus ulcer, stage II Status: Acute Plan: c & s pending, wound care
[2017-12-02 16:39] VITALS: BP 143/67
== END 2017-12-02 19:20 | DRG 948 ==
LOC: ER 11:02 → OBS 15:03 → MED/SURG 11-28 17:30 → OBSVTOIN 11-29 14:09
PROVIDERS: ADMIT Internal Medicine; ATTEND Internal Medicine
DX: R41.82 Altered mental status, unspecified (principal); N39.0 Urinary tract infection, site not specified; E86.0 Dehydration; E87.1 Hypo-osmolality and hyponatremia; Z79.4 Long term (current) use of insulin; K21.9 Gastro-esophageal reflux disease without esophagitis; E11.65 Type 2 diabetes mellitus with hyperglycemia; F32.89 Other specified depressive episodes; I25.10 Atherosclerotic heart disease of native coronary artery without angina pectoris; J44.9 Chronic obstructive pulmonary disease, unspecified; F41.8 Other specified anxiety disorders; R06.02 Shortness of breath; R94.31 Abnormal electrocardiogram [ECG] [EKG]; R62.7 Adult failure to thrive; Z93.3 Colostomy status; L89.152 Pressure ulcer of sacral region, stage 2; B95.62 Methicillin resistant Staphylococcus aureus infection as the cause of diseases classified elsewhere; Z86.73 Personal history of transient ischemic attack (TIA), and cerebral infarction without residual deficits
CPT/HCPCS: 36415; 70450; 71045; 80053; 80061; 81001; 82550; 82553; 82947; 83735; 84484; 85025; 85610; 85730; 87040; 87070; 87075; 87077; 87086; 87186; 87205; 93005; 93010; 94640; 94760; 96365; 96374; 99218; 99231; 99284; A4216; A4222; S0028; S0179; 1956; G0378; J0696; J1200; J1630; J1815; J7613

== ENCOUNTER 2018-02-13 09:42 | Inpatient (IN) | payer OTHER, MEDICAID ==
[2018-02-13 09:48] VITALS: BMI 16.6
[2018-02-13 10:30] LABS: BASOPHILS # (AUTO) 0.1 X10^3/uL (0.0-0.1); BASOPHILS % (AUTO) 0.8 % (0.2-1.0); EOSINOPHILS # (AUTO) 0.1 x10^3/uL (0.0-0.2); EOSINOPHILS % (AUTO) 0.6 % (0.9-2.9); HEMATOCRIT 35.8 % (36.0-47.0); HEMOGLOBIN 12.2 g/dL (12.0-16.0); LYMPHOCYTES # (AUTO) 1.1 X10^3/uL (1.3-2.9); MEAN CORPUSCULAR HEMOGLOBIN 32.2 pg (27.0-34.0); MEAN CORPUSCULAR VOLUME 94.5 fL (80.0-100.0); MEAN PLATELET VOLUME 7.9 fL (7.4-11.0); MONOCYTES # (AUTO) 0.5 x10^3/uL (0.3-0.8); MONOCYTES % (AUTO) 5.3 % (0.0-13.0); NEUTROPHILS # (AUTO) 7.3 x10^3/uL (2.2-4.8); NEUTROPHILS % (AUTO) 81.3 % (42.0-75.0); PLATELET COUNT 233 X10^3/uL (150.0-450.0); RED BLOOD COUNT 3.79 X10^6/uL (3.5-5.4); RED CELL DISTRIBUTION WIDTH 14.7 % (11.6-16.5)
[2018-02-13 10:48] LABS: SALICYLATE < 2.8 mg/dL (2.8-20)
[2018-02-13 10:51] LABS: ALANINE AMINOTRANSFERASE 29 Units/L (12-78); ALBUMIN 3.2 g/dL (3.4-5.0); ALKALINE PHOSPHATASE 70 Units/L (46-116); ASPARTATE AMINO TRANSFERASE 19 Units/L (15-37); BLOOD ALCOHOL < 3 mg/dL (0-19.9); BLOOD UREA NITROGEN 21 mg/dL (7-18); CALCIUM 8.3 mg/dL (8.5-10.1); CARBON DIOXIDE 16.2 mmol/L (21-32); CHLORIDE 97 mmol/L (98-107); COR CA(FOR HYPOALB) 8.9 mg/dL (8.5-10.1); SODIUM 128 mmol/L (136-145); TOTAL PROTEIN 7.5 g/dL (6.4-8.2); eGFR BLACK RACES 57 (>60); eGFR NON BLACK RACES 47 (>60)
[2018-02-13 11:24] LABS: APPEARANCE,URINE CLOUDY (CLEAR); COLOR,URINE YELLOW (YELLOW); GLUCOSE, URINE 4+ (NEGATIVE); KETONES,URINE NEGATIVE (NEGATIVE); PROTEIN,URINE 2+ (NEGATIVE)
[2018-02-13 11:25] LABS: BILIRUBIN,URINE NEGATIVE (NEGATIVE); BLOOD/HEMOGLOBIN,URINE NEGATIVE (NEGATIVE); LEUKOCYTE ESTERASE ,URINE 3+ (NEGATIVE); NITRITES,URINE NEGATIVE (NEGATIVE); UROBILINOGEN,URINE NORMAL (NORMAL)
[2018-02-13 11:26] LABS: BACTERIA,URINE 4+ /HPF (NEGATIVE)
[2018-02-13 11:27] LABS: MUCUS,URINE MANY /HPF (NEGATIVE); YEAST,URINE MODERATE /HPF (NEGATIVE)
[2018-02-13 11:38] LABS: COR NA(FOR HYPERGLY) 139 mmol/L (136-145)
[2018-02-13] MEDS ORDERED: NS 1000 ML 1,000 ML ONE (11:41)
[2018-02-13] MEDS ORDERED: NS 1000 ML 1,000 ML IV ONE ×2 (11:47→13:12)
--- NOTE | 2018-02-13 12:17 | DR.GENAD ---
HPI - PCP Primary Care Physician: BULL - Complaint/Symptoms Chief Complaint:: FAMILY STATED SHE HAS BEEN UP ALL NIGHT YELLING AND SCREAMING. Self Treatment fo Chief Complaint: PT WAS IN [facility] FOR 2 WEEKS, PT WAS RELEASED 4 DAYS AGO. - Source History Provided: Family Member - Mode of Arrival Mode of Arrival: Wheelchair - Timing Onset of Chief Complaint: 02/12/18 PMH - PMH Past Medical History: Yes Past Medical History: Anxiety, COPD, Coronary Artery Disease, CVA, Depression, Diabetes, GERD, Hypertension, [place] Past Medical History Comment: recent admit to [facility] Past Surgical History: Yes Surgical History: Bowel Resection, CABG/Valve Surgery - Family History History of Family Medical Conditions: Yes Family Medical History: Diabetes Mellitus, Cancer, Coronary Artery Disease - Social History Does patient currently use any type of tobacco product: No Have you used tobacco products in the last 12 months: No Type of Tobacco Use: None Does any household member use tobacco: No Alcohol Use: None Do you use any recreational Drugs:: No Lives With: Family Lives Where: Home - infectious screening In the last 2 months have you had wt loss of >10#?: NO Have you had fever, night sweats or hemotysis?: No Have you traveled outside the country in the last 6 months?: No Isolation: Standard ROS - Review of Systems Constitutional: Other (behavioral outbursts since d/c from [facility]) Eyes: No Symptoms Reported ENTM: No Symptoms Reported Respiratoy: No Symptoms Reported Cardiovascular: No Symptoms Reported Genitourinary: No Symptoms Reported Neurological: Anxiety, Emotional Problems, Speech Problem (chronic speech impediment) Musculoskeletal: Back Pain Integumentary: Rash Hematologic/Lymphatic: No Symptoms Reported Endocrine: No Symptoms Reported Psychiatric: See HPI. negative: Suicidal All Other Systems: Reviewed and Negative Unable to Obtain Due To: Altered mental status (poor historian) PE - Vital Signs Vitals: Temperature 98.6 F Pulse Rate 107 Respiratory Rate 16 Blood Pressure [Right Arm] 143/67 Blood Pressure [Left Arm] 149/68 Blood Pressure 147/78 O2 Sat by Pulse Oximetry 99 - General General Appearance: Alert, In No Apparent Distress, Anxious - Head Head Exam: Normal Inspection - Eyes Eye exam: Normal Appearance, PERRL - ENT ENT Exam: Normal Exam, Other (edentulous) - Neck Neck Exam: Normal Inspection, Full ROM, Trachea Midline. negative: Tenderness, Meningismus, Lymphadenopathy, Thyromegaly - Chest Chest Inspection: Symmetric Chest Wall Rise. negative: Tenderness - Respiratory Respiratory Exam: Normal Lung Sounds Bilat Respiratory Exam: Bilateral Clear to Auscultation - Cardiovascular Cardiovascular Exam: Regular Rate, Normal Rhythm, Normal Heart Sounds - Abdominal Exam Abdominal Exam: Normal Inspection, Normal Bowel Sounds, Soft. negative: Tenderness - Extremities Extremities Exam: Normal Inspection, Full ROM, Normal Capillary Refill. negative: Edema - Neurologic Neurological Exam: Alert, Oriented X3 - Psychiatric Psychiatric Exam: Agitated, Anxious ROR - Labs Reviewed Laboratory Results Reviewed?: Yes (lactic 2.5, glucose 548) Result Diagrams: 02/13/18 10:23 02/13/18 10:23 Laboratory: WBC 9.0 X10^3/uL (3.6-10.0) 02/13/18 10:23 RBC 3.79 X10^6/uL (3.5-5.4) 02/13/18 10:23 Hgb 12.2 g/dL (12.0-16.0) 02/13/18 10:23 Hct 35.8 % (36.0-47.0) L 02/13/18 10:23 MCV 94.5 fL (80.0-100.0) 02/13/18 10:23 MCH 32.2 pg (27.0-34.0) 02/13/18 10:23 MCHC 34.0 g/dL (33.0-35.0) 02/13/18 10:23 RDW 14.7 % (11.6-16.5) 02/13/18 10:23 Plt Count 233 X10^3/uL (150.0-450.0) 02/13/18 10:23 MPV 7.9 fL (7.4-11.0) 02/13/18 10:23 Neut % (Auto) 81.3 % (42.0-75.0) H 02/13/18 10:23 Lymph % (Auto) 12.0 % (21.0-51.0) L 02/13/18 10:23 Garza % (Auto) 5.3 % (0.0-13.0) 02/13/18 10:23 Eos % (Auto) 0.6 % (0.9-2.9) L 02/13/18 10:23 Baso % (Auto) 0.8 % (0.2-1.0) 02/13/18 10:23 Neut # (Auto) 7.3 x10^3/uL (2.2-4.8) H 02/13/18 10:23 Lymph # (Auto) 1.1 X10^3/uL (1.3-2.9) L 02/13/18 10:23 Garza # (Auto) 0.5 x10^3/uL (0.3-0.8) 02/13/18 10:23 Eos # (Auto) 0.1 x10^3/uL (0.0-0.2) 02/13/18 10:23 Baso # (Auto) 0.1 X10^3/uL (0.0-0.1) 02/13/18 10:23 Absolute Nucleated RBC 0.0 /100WBC 02/13/18 10:23 Sodium 128 mmol/L (136-145) L 02/13/18 10:23 Corrected Sodium 139 mmol/L (136-145) 02/13/18 10:23 Potassium 3.7 mmol/L (3.5-5.1) 02/13/18 10:23 Chloride 97 mmol/L (98-107) L 02/13/18 10:23 Carbon Dioxide 16.2 mmol/L (21-32) L 02/13/18 10:23 BUN 21 mg/dL (7-18) H 02/13/18 10:23 Creatinine 1.20 mg/dL (0.55-1.02) H 02/13/18 10:23 Est GFR (MDRD) Af Amer 57 (>60) L 02/13/18 10:23 Est GFR (MDRD) Non-Af 47 (>60) L 02/13/18 10:23 Glucose 548 mg/dL (65-99) H* 02/13/18 10:23 Lactic Acid 2.5 mmol/L (0.4-2.0) H 02/13/18 12:22 Calcium 8.3 mg/dL (8.5-10.1) L 02/13/18 10:23 Corrected Calcium 8.9 mg/dL (8.5-10.1) 02/13/18 10:23 Total Bilirubin 0.40 mg/dL (0.2-1.0) 02/13/18 10:23 AST 19 Units/L (15-37) 02/13/18 10:23 ALT 29 Units/L (12-78) 02/13/18 10:23 Alkaline Phosphatase 70 Units/L (46-116) 02/13/18 10:23 Total Protein 7.5 g/dL (6.4-8.2) 02/13/18 10:23 Albumin 3.2 g/dL (3.4-5.0) L 02/13/18 10:23 Globulin 4.3 g/dL (2.5-4.5) 02/13/18 10:23 Albumin/Globulin Ratio 0.7 Ratio (1.1-2.1) L 02/13/18 10:23 Specimen Type Clean catch urine 02/13/18 10:40 Urine Color Yellow (YELLOW) 02/13/18 10:40 Urine Appearance Cloudy (CLEAR) 02/13/18 10:40 Urine pH 5.0 (5.0 - 8.0) 02/13/18 10:40 Ur Specific [place] 1.020 (1.000-1.030) 02/13/18 10:40 Urine Protein 2+ (NEGATIVE) 02/13/18 10:40 Urine Glucose (UA) 4+ (NEGATIVE) 02/13/18 10:40 Urine Ketones Negative (NEGATIVE) 02/13/18 10:40 Urine Occult Blood Negative (NEGATIVE) 02/13/18 10:40 Urine Nitrite Negative (NEGATIVE) 02/13/18 10:40 Urine Bilirubin Negative (NEGATIVE) 02/13/18 10:40 Urine Urobilinogen Normal (NORMAL) 02/13/18 10:40 Ur Leukocyte Esterase 3+ (NEGATIVE) 02/13/18 10:40 Urine RBC 3-5 /HPF (NONE SEEN) 02/13/18 10:40 Urine WBC 20-30 /HPF (NONE SEEN) 02/13/18 10:40 Ur Squamous Epith Cells Not Reportable 02/13/18 10:40 Urine Bacteria 4+ /HPF (NEGATIVE) 02/13/18 10:40 Urine Mucus Many /HPF (NEGATIVE) 02/13/18 10:40 Urine Yeast Moderate /HPF (NEGATIVE) 02/13/18 10:40 Ur Culture Indicated? Yes/culture set up 02/13/18 10:40 Salicylates < 2.8 mg/dL (2.8-20) L 02/13/18 10:23 Urine Opiates Screen Negative (NEG=<300) 02/13/18 10:40 Urine Methadone Screen Negative (NEG=<300) 02/13/18 10:40 Acetaminophen 0.0 ug/mL (10-30) L 02/13/18 10:23 Ur Barbiturates Screen Negative (NEG=<200) 02/13/18 10:40 Ur Phencyclidine Scrn Negative (NEG=<25) 02/13/18 10:40 Ur Amphetamines Screen Negative (NEG=<1000) 02/13/18 10:40 U Benzodiazepines Scrn Negative (NEG=<200) 02/13/18 10:40 Urine Cocaine Screen Negative (NEG=<300) 02/13/18 10:40 U Marijuana (THC) Screen Negative (NEG=<50) 02/13/18 10:40 Ethyl Alcohol mg/dL < 3 mg/dL (0-19.9) 02/13/18 10:23 Acetone, Semi-Quant Negative (NEGATIVE) 02/13/18 10:23 - XRAY XRAY Findings: pending - EKG Compared to prior EKG Dated: 02/13/18 Rate: 86 (no STT changes) [place]: Normal - Diagnosis Discharge Problem: Hyponatremia Sepsis Qualifiers: Sepsis type: sepsis due to unspecified organism Qualified Code(s): A41.9 - Sepsis, unspecified organism Uncontrolled diabetes mellitus Qualifiers: Diabetes mellitus type: type 2 Diabetes mellitus equipment operator intermodal yard insulin use: with senior living use Diabetes mellitus complication status: with hyperglycemia Qualified Code(s): E11.65 - Type 2 diabetes mellitus with hyperglycemia; Z79.4 - salvage determiner (current) use of insulin; Z79.4 - alf (current) use of insulin ; Z79.4 - salvage determiner (current) use of insulin; Z79.4 - salvage determiner (current) use of insulin Altered mental status, unspecified Qualifiers: Altered mental status type: unspecified Qualified Code(s): R41.82 - Altered mental status, unspecified - Discharge Plan Disposition: 09 ADMITTED INPATIENT Condition: Stable - Follow ups/Referrals Follow ups/Referrals: DELMA GOTTLIEB [Primary Care Provider] - 3 days - Instructions Additional Notes - Additional Notes Additional Notes: spoke with Dr Clements. Pt to be on sliding scale insulin, zosyn, IV hydration
[2018-02-13] MEDS ORDERED: ATIVAN INJ 2 MG VIAL IVP ONE (13:16)
[2018-02-13] MEDS ORDERED: ATIVAN INJ 2 MG VIAL ONE (13:19)
[2018-02-13] MEDS ORDERED: NS 100 ML IV + SPIKE MINIBAG* 100 ML IV ONE (13:28)
[2018-02-13] MEDS ORDERED: ZOSYN VIAL 3.375 GM IV ONE (13:28)
--- NOTE | 2018-02-13 13:35 | RAD ---
Examination: Portable AP chest History: Chest pain Comparison reference to [id number] Findings: Normal heart size with sternal wires. Essentially clear lungs and pleural spaces. Mild communications department chair nicanor interstitial increase is suggested. No definite pneumothorax or pleural fluid. Impression: No significant interval change or acute chest findings. Reported By:
[2018-02-13] MEDS ORDERED: PATIENT'S HOME MEDICATION (Tizanidine Hcl [Zanaflex 4 Mg] 1 TAB) PO PRN (13:37)
[2018-02-13] MEDS: ZOSYN VIAL 3.375 GM 3.375 GM in NS 100 ML IV + SPIKE MINIBAG* 100 ML IV SCH ×2 (13:37→22:19)
[2018-02-13] MEDS ORDERED: BUTT CREAM (COMPOUND) ONE (14:43)
[2018-02-13] MEDS ORDERED: ZANAFLEX PO PRN (15:24)
[2018-02-13] MEDS: BUTT CREAM (COMPOUND) TOP PRN (15:37)
[2018-02-13] MEDS: NS 1000 ML 1,000 ML IV SCH ×2 (15:45→22:19)
[2018-02-13] MEDS: BUSPAR PO SCH ×2 (15:45→22:19)
[2018-02-13] MEDS ORDERED: LEXAPRO ONE (20:02)
[2018-02-13] MEDS: LEXAPRO PO SCH (20:23)
[2018-02-13] MEDS: REMERON PO SCH (20:23)
[2018-02-13] MEDS: ATIVAN INJ 2 MG VIAL IVP PRN (20:28)
[2018-02-13] MEDS ORDERED: PATIENT'S HOME MEDICATION (Risperidone [Risperidone] 1 TAB) PO SCH (21:00)
[2018-02-13] MEDS ORDERED: PATIENT'S HOME MEDICATION (Escitalopram Oxalate [Lexapro 20 Mg] 1 TAB) PO SCH (21:00)
[2018-02-13] MEDS ORDERED: PATIENT'S HOME MEDICATION (Mirtazapine [Mirtazapine] 1 TAB) PO SCH (21:00)
[2018-02-13] MEDS: HumuLIN R SC PRN (21:30)
[2018-02-14] MEDS: NS 1000 ML 1,000 ML IV SCH (05:19)
[2018-02-14] MEDS: ZOSYN VIAL 3.375 GM 3.375 GM in NS 100 ML IV + SPIKE MINIBAG* 100 ML IV SCH ×3 (05:19→21:00)
[2018-02-14] MEDS: BUSPAR PO SCH ×3 (05:19→21:05)
[2018-02-14] MEDS: HumuLIN R SC PRN ×4 (06:25→20:52)
[2018-02-14 06:32] LABS: BASOPHILS % (AUTO) 0.6 % (0.2-1.0); EOSINOPHILS # (AUTO) 0.2 x10^3/uL (0.0-0.2); HEMATOCRIT 32.9 % (36.0-47.0); HEMOGLOBIN 11.7 g/dL (12.0-16.0); LYMPHOCYTES # (AUTO) 1.1 X10^3/uL (1.3-2.9); LYMPHOCYTES % (AUTO) 17.2 % (21.0-51.0); MEAN CORPUSCULAR HEMOGLOBIN 32.7 pg (27.0-34.0); MEAN CORPUSCULAR HGB CONC 35.4 g/dL (33.0-35.0); MEAN CORPUSCULAR VOLUME 92.4 fL (80.0-100.0); MONOCYTES # (AUTO) 0.4 x10^3/uL (0.3-0.8); MONOCYTES % (AUTO) 7.3 % (0.0-13.0); NEUTROPHILS # (AUTO) 4.4 x10^3/uL (2.2-4.8); NEUTROPHILS % (AUTO) 71.9 % (42.0-75.0); PLATELET COUNT 238 X10^3/uL (150.0-450.0); RED BLOOD COUNT 3.56 X10^6/uL (3.5-5.4); RED CELL DISTRIBUTION WIDTH 15.2 % (11.6-16.5); WHITE BLOOD COUNT 6.2 X10^3/uL (3.6-10.0)
[2018-02-14 06:53] LABS: ALANINE AMINOTRANSFERASE 24 Units/L (12-78); ALBUMIN 2.7 g/dL (3.4-5.0); ALKALINE PHOSPHATASE 60 Units/L (46-116); ASPARTATE AMINO TRANSFERASE 19 Units/L (15-37); BLOOD UREA NITROGEN 12 mg/dL (7-18); CALCIUM 7.8 mg/dL (8.5-10.1); CARBON DIOXIDE 15.3 mmol/L (21-32); CHLORIDE 112 mmol/L (98-107); COR CA(FOR HYPOALB) 8.8 mg/dL (8.5-10.1); COR NA(FOR HYPERGLY) 145 mmol/L (136-145); CREATININE 0.93 mg/dL (0.55-1.02); SODIUM 142 mmol/L (136-145); TOTAL PROTEIN 6.3 g/dL (6.4-8.2); eGFR BLACK RACES > 60 (>60); eGFR NON BLACK RACES > 60 (>60)
[2018-02-14] MEDS ORDERED: SODIUM CHLORIDE 1 GM PO SCH (09:00)
[2018-02-14] MEDS ORDERED: [UNRECOGNIZED DRUG - OTHER] PO SCH (09:00)
[2018-02-14] MEDS ORDERED: POTASSIUM CHLORIDE LIQ 20 MEQ UDC PO PRN (09:09)
[2018-02-14] MEDS ORDERED: POTASSIUM CHL 60 MEQ/NS 0.45% 500 ML IV PRN (09:09)
[2018-02-14] MEDS ORDERED: POTASSIUM CHL 40 MEQ/NS 0.45% 500 ML IV PRN (09:09)
[2018-02-14] MEDS ORDERED: K-RIDER 10 MEQ/NS 100 ML 10 MEQ/100 ML BAG IV PRN (09:09)
[2018-02-14] MEDS ORDERED: K-LYTE EFFERVESCENT PO PRN (09:09)
--- NOTE | 2018-02-14 11:41 | DR.H&P ---
H&P - History & Physical for Day of: H&P Date: 02/13/18 - Chief Complaint Chief Complaint: AMS, CONFUSION, DEHYDRATION - Allergies Allergies/Adverse Reactions: Allergies Allergy/AdvReac Type Severity Reaction Status Date / Time No Known Drug Allergies Allergy Verified 02/13/18 09:43 - History of Present Illness History of Present Illness: 72 WF ER ADMISSION AFTER FAMILY BRINGING PT TO ED STATING SHE WAS RECENTLY D/C FROM [facility] IN [place]. PT VERY AGITATED, SCREAMING OUT ALL NIGHT. PT IS DEHYDRATED AND HYPOKALMEIC ON ADMISSION. PT HAS HX OF CVD, ANOREXIA, OA, HTN, COPD. PT ADMITTED FOR TREATMENT AND EVALUATION OF ACUTE SYMPTOMS - Past Medical History Past Medical History: Anxiety, COPD, Coronary Artery Disease, CVA, Depression, Diabetes, GERD, Hypertension, VT Additional Medical History: colon cancer - Past Surgical History Surgical History: Bowel Resection, CABG/Valve Surgery Additional Surgical History: colon cancer resection with colostomy formation - Family History Family Medical History: Diabetes Mellitus, Cancer, Coronary Artery Disease - Social History Does patient currently use any type of tobacco product: No Have you used tobacco products in the last 12 months: No Type of Tobacco Use: None Does any household member use tobacco: No (UNABLE TO ANSWER) Alcohol Use: None - Medications Home Medications: Buspirone HCl 10 mg [BUSPAR TAB 10 MG *] 2 tab PO TID 02/13/18 [History Confirmed 02/13/18] Escitalopram Oxalate [Lexapro 20 mg] 1 tab PO HS 02/13/18 [History Confirmed ] Mirtazapine [Mirtazapine] 1 tab PO HS 02/13/18 [History Confirmed 02/13/18] Risperidone [Risperidone] 1 tab PO HS 02/13/18 [History Confirmed 02/13/18] Sodium Chloride 1 gm PO DAILY 02/13/18 [History Confirmed 02/13/18] Tizanidine HCl [Zanaflex 4 mg] 1 tab PO Q8H PRN 02/13/18 [History Confirmed ] - Review of Systems Constitutional: Weakness, Malaise Eyes: No Symptoms Reported ENT: No Symptoms Reported Respiratory: Shortness of Breath Cardiovascular: denies: Chest Pain, Edema Gastrointestinal: Other (POOR PO INTAKE) Genitourinary: Incontinence Musculoskeletal: Back Pain, Leg Pain Skin: Wound (BILATERAL HEELS) Neurological: Weakness, Confusion - Physical Exam Vital Signs: Temperature 98.3 F Pulse Rate [Left Posterior 100 Tibial] Pulse Rate [Right Brachial] 91 Pulse Rate 107 Respiratory Rate 16 Blood Pressure [Left Calf] 163/78 Blood Pressure [Right Arm] 167/76 Blood Pressure [Left Arm] 149/68 Blood Pressure 147/78 O2 Sat by Pulse Oximetry 99 Oriented: Person Eyes: Normal Ear: Normal Nose: Normal Throat: Normal Respiratory: RLL Diminished, LLL Diminished Cardiovascular: Normal : Normal Auscultation: Bowel Sounds: Normal Palpation: Normal Tenderness: Epigastric Skin: Decreased Turgur Musculoskeletal: Back:Lumbar, Motor Deficit, Sensory Deficit, Instability Psychiatric: Anxiety, Agitation Affect: Anxious Speech Pattern: Inappropriate - Assessment/Plan (1) Mental status alteration Qualifiers: Altered mental status type: unspecified Qualified Code(s): R41.82 - Altered mental status, unspecified Status: Acute Plan: ADMIT, IV HYDRATION. CORRECT ELECTROLYTE IMBALANCE. ENCOURAGE ORAL INTAKE. CONFIRM HOME MEDS, ADMISSION LABS. CXR, BP CONTROL, FALL RISK. CASE MANAGEMENT CONSULT- RECOMMEND PERMANENT NH PLACEMENT (2) Hyponatremia Status: Acute (3) Anxiety Status: Chronic (4) CAD (coronary artery disease) Status: Chronic (5) COPD (chronic obstructive pulmonary disease) Status: Chronic (6) GERD (gastroesophageal reflux disease) Status: Chronic (7) History of CVA (cerebrovascular accident) Status: Chronic (8) History of colon cancer Status: Chronic (9) Hypertension Status: Chronic
[2018-02-14] MEDS: NS 1000 ML 1,000 ML with MVI INJ (ADULT) 10 ML IV SCH ×4 (13:28→18:08)
[2018-02-14] MEDS ORDERED: NS 250 ML IV 250 ML IV ONE (13:31)
[2018-02-14] MEDS: MEGACE PO SCH ×2 (13:46→20:07)
[2018-02-14] MEDS: ATIVAN INJ 2 MG VIAL IVP PRN ×2 (14:23→20:33)
[2018-02-14] MEDS: MAGNESIUM SULFATE 1 GM/100 mL PREMIX 1 GM/100 ML BAG IV PRN ×4 (18:20→23:46)
[2018-02-14] MEDS ORDERED: LEXAPRO ONE (19:47)
[2018-02-14] MEDS: LEXAPRO PO SCH (20:05)
[2018-02-14] MEDS: REMERON PO SCH ×2 (20:05→20:07)
[2018-02-14] MEDS: BUTT CREAM (COMPOUND) TOP PRN (21:00)
[2018-02-15] MEDS: NS 1000 ML 1,000 ML with MVI INJ (ADULT) 10 ML IV SCH ×6 (03:54→20:21)
[2018-02-15] MEDS: ZOSYN VIAL 3.375 GM 3.375 GM in NS 100 ML IV + SPIKE MINIBAG* 100 ML IV SCH ×3 (05:15→21:40)
[2018-02-15] MEDS: BUSPAR PO SCH ×3 (05:15→21:40)
[2018-02-15 06:26] LABS: BASOPHILS % (AUTO) 0.6 % (0.2-1.0); EOSINOPHILS # (AUTO) 0.2 x10^3/uL (0.0-0.2); EOSINOPHILS % (AUTO) 2.8 % (0.9-2.9); HEMATOCRIT 32.8 % (36.0-47.0); HEMOGLOBIN 11.4 g/dL (12.0-16.0); LYMPHOCYTES # (AUTO) 1.3 X10^3/uL (1.3-2.9); LYMPHOCYTES % (AUTO) 15.2 % (21.0-51.0); MEAN CORPUSCULAR HEMOGLOBIN 32.2 pg (27.0-34.0); MEAN CORPUSCULAR HGB CONC 34.7 g/dL (33.0-35.0); MEAN CORPUSCULAR VOLUME 92.9 fL (80.0-100.0); MEAN PLATELET VOLUME 7.6 fL (7.4-11.0); MONOCYTES # (AUTO) 0.6 x10^3/uL (0.3-0.8); MONOCYTES % (AUTO) 7.2 % (0.0-13.0); NEUTROPHILS # (AUTO) 6.2 x10^3/uL (2.2-4.8); NEUTROPHILS % (AUTO) 74.2 % (42.0-75.0); PLATELET COUNT 255 X10^3/uL (150.0-450.0); RED BLOOD COUNT 3.53 X10^6/uL (3.5-5.4); RED CELL DISTRIBUTION WIDTH 15.5 % (11.6-16.5); WHITE BLOOD COUNT 8.3 X10^3/uL (3.6-10.0)
[2018-02-15 06:27] LABS: ALBUMIN 2.7 g/dL (3.4-5.0); CALCIUM 8.1 mg/dL (8.5-10.1); CARBON DIOXIDE 17.2 mmol/L (21-32); COR CA(FOR HYPOALB) 9.1 mg/dL (8.5-10.1); CREATININE 1.16 mg/dL (0.55-1.02); TOTAL PROTEIN 6.8 g/dL (6.4-8.2)
[2018-02-15] MEDS: MEGACE PO SCH ×2 (09:28→20:16)
[2018-02-15] MEDS: HumuLIN R SC PRN ×3 (11:50→20:44)
[2018-02-15] MEDS: ATIVAN INJ 2 MG VIAL IVP PRN ×2 (13:04→20:44)
[2018-02-15] MEDS ORDERED: DULCOLAX SUPPOSITORY 10 MG ONE (13:46)
[2018-02-15] MEDS ORDERED: LEXAPRO ONE (20:04)
[2018-02-15] MEDS: LEXAPRO PO SCH (20:15)
[2018-02-15] MEDS: REMERON PO SCH (20:15)
[2018-02-16] MEDS: NS 1000 ML 1,000 ML with MVI INJ (ADULT) 10 ML IV SCH ×4 (03:00→11:04)
[2018-02-16] MEDS ORDERED: NS 1000 ML 1,000 ML ONE (05:11)
[2018-02-16] MEDS: BUSPAR PO SCH ×2 (05:23→13:07)
[2018-02-16] MEDS: ZOSYN VIAL 3.375 GM 3.375 GM in NS 100 ML IV + SPIKE MINIBAG* 100 ML IV SCH ×2 (05:24→13:07)
[2018-02-16] MEDS: HumuLIN R SC PRN ×2 (05:32→12:15)
[2018-02-16 06:11] LABS: BASOPHILS # (AUTO) 0.1 X10^3/uL (0.0-0.1); BASOPHILS % (AUTO) 1.1 % (0.2-1.0); EOSINOPHILS # (AUTO) 0.2 x10^3/uL (0.0-0.2); EOSINOPHILS % (AUTO) 2.9 % (0.9-2.9); HEMATOCRIT 31.2 % (36.0-47.0); HEMOGLOBIN 10.7 g/dL (12.0-16.0); LYMPHOCYTES # (AUTO) 1.7 X10^3/uL (1.3-2.9); LYMPHOCYTES % (AUTO) 23.5 % (21.0-51.0); MEAN CORPUSCULAR HEMOGLOBIN 32.2 pg (27.0-34.0); MEAN CORPUSCULAR HGB CONC 34.4 g/dL (33.0-35.0); MEAN CORPUSCULAR VOLUME 93.8 fL (80.0-100.0); MEAN PLATELET VOLUME 7.7 fL (7.4-11.0); MONOCYTES # (AUTO) 0.5 x10^3/uL (0.3-0.8); MONOCYTES % (AUTO) 7.2 % (0.0-13.0); NEUTROPHILS # (AUTO) 4.6 x10^3/uL (2.2-4.8); NEUTROPHILS % (AUTO) 65.3 % (42.0-75.0); PLATELET COUNT 237 X10^3/uL (150.0-450.0); RED BLOOD COUNT 3.33 X10^6/uL (3.5-5.4); RED CELL DISTRIBUTION WIDTH 15.5 % (11.6-16.5); WHITE BLOOD COUNT 7.1 X10^3/uL (3.6-10.0)
[2018-02-16 06:17] LABS: ALBUMIN 2.4 g/dL (3.4-5.0); CALCIUM 7.6 mg/dL (8.5-10.1); CARBON DIOXIDE 15.7 mmol/L (21-32); COR CA(FOR HYPOALB) 8.9 mg/dL (8.5-10.1); CREATININE 1.16 mg/dL (0.55-1.02); TOTAL PROTEIN 5.8 g/dL (6.4-8.2)
[2018-02-16] MEDS: MEGACE PO SCH (08:25)
[2018-02-16] MEDS: ATIVAN INJ 2 MG VIAL IVP PRN ×2 (08:59→12:52)
[2018-02-16 15:48] VITALS: BP 176/70
== END 2018-02-16 16:40 | disposition home health service (06) | DRG 948 ==
LOC: ER 10:01 → MED/SURG 13:29
PROVIDERS: ADMIT Internal Medicine; ATTEND Internal Medicine
DX: R41.82 Altered mental status, unspecified (principal); E86.0 Dehydration; E11.65 Type 2 diabetes mellitus with hyperglycemia; N39.0 Urinary tract infection, site not specified; J44.9 Chronic obstructive pulmonary disease, unspecified; F41.8 Other specified anxiety disorders; I25.10 Atherosclerotic heart disease of native coronary artery without angina pectoris; K21.9 Gastro-esophageal reflux disease without esophagitis; I10 Essential (primary) hypertension; Z79.4 Long term (current) use of insulin; R94.31 Abnormal electrocardiogram [ECG] [EKG]; E87.6 Hypokalemia; E87.1 Hypo-osmolality and hyponatremia; Z85.038 Personal history of other malignant neoplasm of large intestine; Z86.73 Personal history of transient ischemic attack (TIA), and cerebral infarction without residual deficits; R62.7 Adult failure to thrive; R09.02 Hypoxemia; R26.89 Other abnormalities of gait and mobility; Z93.3 Colostomy status
CPT/HCPCS: 36415; 51702; 71045; 80053; 80307; 81001; 82009; 82947; 83605; 83735; 84132; 85025; 87040; 87086; 93005; 93010; 96365; 96367; 96374; 96375; 97535; 99284; A4222; S0179; G0434; G6038; G6039; G6040; J1815; J2060; J2543